=== PATIENT | male | born 1995 | race Two or more races ===

== ENCOUNTER 2021-09-14 07:05 | Emergency (ER) | payer MEDICAID, SELFPAY ==
[2021-09-14 07:09] VITALS: BP 133/67; PULSE 72; RESP 18; TEMP 36.6; O2SAT 97; BMI 28.8
[2021-09-14 07:36] LABS: Strep A Nucleic Acid Negative (Negative)
--- NOTE | 2021-09-14 07:38 | ED_ITS ---
HPI - General Adult General Chief complaint: General Medical Stated complaint: fever, cough, runny nose, chest feels tight Time Seen by Provider: 09/14/21 07:38 Source: patient Mode of arrival: ambulatory Limitations: no limitations History of Present Illness HPI narrative: patient with fever, chills, cough started yesterday. Today he developed shortness of breath. Patient is not vaccinated for COVID or the flu. Onset (ago): day(s) Severity: mild Associated symptoms: cough, fever/chills, headaches and nausea/vomiting Related Data Previous Rx's Medication Instructions Recorded [id number] 2.5 20 ml PO Q4H PRN #118 ml 09/14/21 mg-5 mg-50 mg/5 mL oral liquid (Robitussin Cough and Cold CF) Allergies Allergy/AdvReac Type Severity Reaction Status Date / Time No Known Allergies Allergy Unverified 07/07/20 16:22 Review of Systems Constitutional: Constitutional: Reports no additional constitutional complaints Eyes: Eyes: Reports no additional eye complaints ENT: Denies dizziness Cardiovascular: Cardiovascular: Reports no additional cardiovascular complaints Respiratory: Respiratory: Reports as per HPI Gastrointestinal: Gastrointestinal: Reports no additional gastrointestinal complaints Musculoskeletal: Musculoskeletal: Reports no additional musculoskeletal complaints Integumentary/Breasts: Skin/Breast: Denies rash Neurologic: Reports system reviewed and no additional complaints, except as documented, Denies dizziness and Denies Sensory deficit (Neuro) Psychiatric: Psychiatric: Denies anxiety [facility] Past Medical History Medical History No known health problems Social History Social History Advance Directives: No Physical Exam Vital Signs: Vital Signs: Last Vital Signs Temp 98.4 F 09/14/21 08:43 Pulse 75 09/14/21 08:43 Resp 16 09/14/21 08:43 BP 122/88 09/14/21 08:43 Pulse Ox 97 09/14/21 08:43 Body Mass Index 28.8 Const: General: healthy appearing Nutritional Appearance: average body habitus Orientation/consciousness: oriented to person and patient oriented x3 Limitations: no limitations HENMT: Head: Yes normal to inspection Ears: external ears normal General nose exam: Normal external nose present Mouth: Normal oral and palatal mucosa present and oropharynx normal Throat: Yes posterior oropharynx normal Eyes: General: appearance normal, both eyes and all related structures Neck: Other: supple Neck: Yes normal visual inspection Chest: Chest palpation & inspection: normal inspection of the chest Resp: Auscultation: clear to auscultation bilaterally Cardio: Jugular venous distension: no JVD Rate: regular rate Rhythm: regular rhythm Heart sounds: S1 normal heart sound present and S2 normal heart sound present GI: Inspection: Yes normal to inspection Palpation (GI): Soft to palpation, nontender and No hepatosplenomegaly present Auscultation: normal bowel sounds : General: Yes no CVA tenderness Back/Spine/Pelvis: Back: no CVA tenderness Skin: General skin exam: no rashes or lesions noted Neuro: General: oriented to person and patient oriented x3 Cranial nerves: Yes CN's II-XII intact bilaterally Motor exam (neuro): 5/5 motor strength present throughout Sensory Exam: No Sensory deficit (Neuro) Extrem: General: Yes normal to inspection Psych: Appearance: grossly normal Course Reevaluation(s) Reevaluation #1: COVID, RSV, and flu negative. Will dc home Time: 09:04 Medical Decision Making Lab Data Labs: Lab Results 09/14/21 09/14/21 Range/Units 07:16 07:21 Influenza Type A (PCR) NEGATIVE (Negative) Influenza Type B (PCR) NEGATIVE (Negative) RSV RNA Qual (PCR) NEGATIVE (Negative) SARS-CoV-2 RNA (RT-PCR) NEGATIVE (Negative) S. pyogenes GrpA ABBIE Negative (Negative) Discharge Plan Discharge Clinical Impression: Upper respiratory infection Qualifiers: URI type: unspecified URI Qualified Code(s): J06.9 - Acute upper respiratory infection, unspecified Patient Disposition: Home, Self-Care Instructions: Upper Respiratory Infection (ED), Viral Syndrome (ED) Prescriptions: New Robitussin Cough and Cold CF 2.5-5-50 mg/5 mL liquid 20 ml PO Q4H PRN (Reason: cold symptoms) Qty: 118 RF: 0 Referrals: Conner Tran MD [Primary Care Provider] - 1 week Stand Alone Forms: Work/School Release
[2021-09-14 08:25] LABS: Influenza A PCR NEGATIVE (Negative); Influenza B PCR NEGATIVE (Negative); Resp Syncy Virus RNA Qual PCR NEGATIVE (Negative); SARS COV2 PCR INHOUSE NEGATIVE (Negative)
[2021-09-14 08:43] VITALS: BP 122/88; PULSE 75; RESP 16; TEMP 36.9; O2SAT 97
== END 2021-09-14 10:29 | disposition home or self-care (01) ==
PROVIDERS: Emergency Provider Emergency Medicine; PCP Internal Medicine
DX: J06.9 Acute upper respiratory infection, unspecified (principal); R50.9 Fever, unspecified; R09.89 Other specified symptoms and signs involving the circulatory and respiratory systems; Z79.899 Other long term (current) drug therapy; Z20.822 Contact with and (suspected) exposure to COVID-19
CPT/HCPCS: 0241U; 36415; 87651; 99283

== ENCOUNTER 2021-09-17 09:12 | Emergency (ER) | payer MEDICAID, SELFPAY ==
--- NOTE | ~2021-09-17 | CT_ITS ---
EXAMINATION: CT ABDOMEN AND PELVIS WITHOUT CONTRAST CLINICAL INFORMATION: Right-sided abdominal pain COMPARISON: None TECHNIQUE: Multidetector volumetric imaging was performed from the superior aspect of the liver through the pubic symphysis. Sagittal and coronal reformatted images were obtained on the technologist's workstation. This CT examination was performed using dose optimization techniques as appropriate, variously including the following: *Automated exposure control *Adjustment of mA and/or kV according to patient size (this includes techniques or standardized protocols for targeted exams where dose is matched to indication/reason for exam; i.e. extremities or head) *Use of iterative reconstruction technique DLP: 557 mGy-cm FINDINGS: LUNG BASES: The visualized lung bases are unremarkable. LIVER, GALLBLADDER, AND BILIARY TREE: The liver is normal in size, shape, and attenuation. No focal hepatic lesion or biliary ductal dilatation is present. The gallbladder is unremarkable with no evidence of radiopaque gallstones, gallbladder wall thickening, or obvious pericholecystic inflammatory changes. PANCREAS: Unremarkable. SPLEEN: Unremarkable. ADRENAL GLANDS: Unremarkable. KIDNEYS AND URETERS: The kidneys are normal in size, shape, and attenuation. No hydronephrosis, hydroureter, or calculi seen. No perinephric stranding. There is a 2 cm left renal peripelvic hypodensity in midpole. Question small cyst. BLADDER: Unremarkable. GASTROINTESTINAL TRACT: There is scattered stool and gas seen throughout the colon without distention. The small bowel loops are normal caliber. Appendix is normal caliber. No inflammatory changes seen in the abdomen or the pelvis. ABDOMINAL WALL: No significant hernia is appreciated. LYMPH NODES: Normal. VASCULAR: Unremarkable. PELVIC VISCERA: Unremarkable. OSSEOUS STRUCTURES: Unremarkable. CT/CT abdomen pelvis wo con IMPRESSION: No acute intra-abdominal process seen. Normal appendix. Probable left peripelvic cyst. Fleischner guidelines were followed.
[2021-09-17 09:19] VITALS: BP 129/93; PULSE 80; RESP 18; TEMP 36.9; O2SAT 97; BMI 28.8
[2021-09-17 09:21] VITALS: BP 129/93; PULSE 80; RESP 18; TEMP 36.9; O2SAT 98; BMI 29.7
--- NOTE | 2021-09-17 10:19 | ED.ABDPAIN ---
HPI - Abdominal Pain General Chief Complaint: Abdominal Pain Stated Complaint: sore abd abd cramping Time Seen by Provider: 09/17/21 10:16 Source: patient and family (Mother) Mode of arrival: ambulatory Limitations: no limitations History of Present Illness HPI narrative: 26-year-old male came in for evaluation of right-sided abdominal cramps. Symptoms started 2 days ago after eating at a restaurant, shortly after ate salad at the restaurant start have cramps in his right abdominal area, cramps are intermittent but very frequent, described as cramps or colic, severe /, associated with nausea and 1 time vomiting, patient also started nonbloody watery diarrhea x 1 yesterday. No fever, no chills. Food will aggravate the pain, nothing relieves the pain. No history of abdominal surgery. Declined any urinary symptoms no blood in the urine, no urinary frequency. Related Data Previous Rx's Medication Instructions Recorded [id number] 2.5 20 ml PO Q4H PRN #118 ml 09/14/21 mg-5 mg-50 mg/5 mL oral liquid (Robitussin Cough and Cold CF) Allergies Allergy/AdvReac Type Severity Reaction Status Date / Time No Known Allergies Allergy Unverified 07/07/20 16:22 Review of Systems Review of Systems All other systems are reviewed and are negative Constitutional: Reports as per HPI and Reports no additional constitutional complaints Eyes: Reports as per HPI and Reports no additional eye complaints Reports system reviewed and no additional complaints, except as documented Cardiovascular: Reports as per HPI and Reports no additional cardiovascular complaints Respiratory: Reports as per HPI and Reports no additional respiratory complaints Gastrointestinal: Reports as per HPI and Reports no additional gastrointestinal complaints Genitourinary: Reports no additional female genitourinary complaints Musculoskeletal: Reports no additional musculoskeletal complaints Skin/Breast: Reports system reviewed and no additional complaints, except as docu Psychiatric: Reports no additional psychiatric complaints Endocrine: Reports no additional endocrine complaints Hematologic/Lymphatic: Reports no additional hematologic/lymphatic complaints Allergic/Immunologic: Reports no additional allergic/immunologic complaints Reports system reviewed and no additional complaints, except as documented and Reports Abnormal speech present Physical Exam Vital Signs: Vital Signs: Last Vital Signs Temp 98.4 F 09/17/21 09:21 Pulse 80 09/17/21 09:21 Resp 18 09/17/21 09:21 BP 129/93 H 09/17/21 09:21 Pulse Ox 98 09/17/21 09:21 Body Mass Index 29.7 Insert trauma vital signs Appearance: Alert. Oriented X3. No acute distress. Head: Normal external exam. Normocephalic. Atraumatic. No Mayers signs noted. No raccoon eyes noted Eyes: PERRLA. EOMI. Conjunctiva and sclera normal. Eyelids normal. ENT: TM's Normal. Pharynx normal. Uvula midline. Moist mucous membranes. No trismus noted. No drooling noted. No muffled voice noted. Neck: Normal inspection. Neck supple. FROM. No adenopathy. Thyroid Normal. No meningeal signs. No neck mass noted. CVS: Normal heart rate and rhythm. Heart sound normal. No murmurs noted. Pulses normal throughout. Respiratory: No respiratory distress. Painless inspiration. Breath sounds normal. No wheezes/rales/rhonchi noted. Chest nontender. No accessory muscle usage noted or decreased air movement noted. Abdomen: Soft and nontender. Bowel sounds normal in all 4 quadrants. No distention noted. No organomegaly noted. No visible injury noted. Back: No CVA tenderness. Full range of motion noted. Skin: Skin warm and dry. Normal skin color. Normal skin turgor. No rashes/lesions/lacerations noted. Extremities: No lower extremity edema. Extremities exhibit normal range of motion. Extremities nontender. Neuro: Oriented X 3. Cranial nerve exam: II-XII are grossly intact No motor deficit. No sensory deficit. Reflexes normal. Course Course Course Narrative: Assessment and plan. 26-year-old male came in with right-sided abdominal colic pain for 2 days since he ate bad food at a restaurant. Patient has unremarkable labs, CT with no concern of intra-abdominal pathology. Patient was reassured and instructed to use Tylenol for discomfort. MDM - Abdominal Pain Lab Data Attestation: I reviewed the patient's lab results. Result diagrams: 09/17/21 10:52 09/17/21 10:52 Labs: Lab Results 09/17/21 09/17/21 09/17/21 Range/Units 10:52 10:52 10:57 WBC 8.2 (4.8-10.8) X10*3/uL RBC 5.11 (4.60-5.80) X10*6/uL Hgb 15.3 (14.0-18.0) g/dl Hct 45.2 (42.0-52.0) % MCV 88.5 (80.0-98.0) fL MCH 29.9 (27.0-33.0) pg MCHC 33.8 (31.0-36.0) g/dl RDW 12.6 (11.0-16.0) % Plt Count 261 (160-400) X10*3/uL MPV 9.3 L (9.4-12.4) fL Immature Gran % (Auto) 0.4 (0.0-0.4) % Neut % (Auto) 55.0 (45-73) % Lymph % (Auto) 28.2 (20-40) % Hand % (Auto) 9.7 (2-11) % Eos % (Auto) 6.6 H (0-4) % Baso % (Auto) 0.1 (0-2) % Lymph # (Auto) 2.3 (1.2-4.9) X10*3/uL Hand # (Auto) 0.8 (0.1-1.2) X10*3/uL Eos # (Auto) 0.5 H (0.0-0.4) X10*3/uL Baso # (Auto) 0.0 (0.0-0.2) X10*3/uL Abs Immat Gran (auto) 0.03 (0.00-0.03) X10*3/uL Absolute Neuts (auto) 4.5 (2.0-8.3) x10*3/uL Absolute Nucleated RBC 0.000 (0.0-0.012) X10*3/uL Nucleated RBC % (auto) 0.0 (0.0-0.2) /100WBC Sodium 141 (135-145) mmol/L Potassium 4.2 (3.3-5.1) mmol/L Chloride 105 (96-108) mmol/L Carbon Dioxide 25 (22-29) mmol/L Anion Gap 15 (12-20) BUN 12 (9-16) mg/dL Creatinine 0.85 (0.5-1.4) mg/dL Estim Creat Clear Calc 142.6 Estimated GFR > 60 Random Glucose 101 (60-115) mg/dL Calcium 9.8 (8.4-10.2) mg/dL Total Bilirubin 0.7 (0.0-1.0) mg/dL Direct Bilirubin 0.2 (0.0-0.5) mg/dL AST 21 (5-37) U/L ALT 18 (0-40) U/L Alkaline Phosphatase 81 (39-117) U/L Total Protein 7.4 (6.5-8.0) g/dL Albumin 4.8 (3.5-5.0) g/dL Lipase 22 (8-78) U/L Urine Color YELLOW Urine Appearance CLEAR Urine pH 6.0 (5.0-8.0) Ur Specific [place] >= 1.030 H (1.005-1.025) Urine Protein 1+ H (NEG-TRACE) MG/DL Urine Glucose (UA) NEG (NEG) MG/DL Urine Ketones NEG (NEG) MG/DL Urine Blood NEG (NEG) Urine Nitrite NEG (NEG) Ur Leukocyte Esterase NEG (NEG) Urine RBC 0 (0) /HPF Urine WBC 0 (0-4) /HPF Ur Squamous Epith Cells NONE /LPF Urine Bacteria NONE /LPF Urine Mucus 1+ /LPF Imaging Data CT scan - abdomen: Radiologist's impression: No acute intra-abdominal process seen. ?Normal appendix. ?Probable left peripelvic cyst.? ?Fleischner guidelines were followed. Discharge Plan Discharge Clinical Impression: Abdominal pain, Food poisoning Patient Disposition: Home, Self-Care Instructions: Food Poisoning (ED) Prescriptions: No Action Robitussin Cough and Cold CF 2.5-5-50 mg/5 mL liquid 20 ml PO Q4H PRN (Reason: cold symptoms) Qty: 118 RF: 0 Referrals: Conner Tran MD [Primary Care Provider] - 2 days [facility] Past Medical History Medical History No known health problems Social History Social History Alcohol intake: never Patient Tobacco Use Status: Former Tobacco user Smoked in Last 30 Days: No Use of substances other than those prescribed or required for medical reasons: Yes Substance Use Type: Marijuana Substance Use Frequency: Occasionally Advance Directives: No Advance Directives Information Provided: Yes
[2021-09-17 11:01] LABS: MANUAL DIFF FLAG NO
[2021-09-17 11:02] LABS: Basophils Percent Auto 0.1 % (0-2); Eosinophils Absolute Auto 0.5 X10*3/uL (0.0-0.4); Eosinophils Percent Auto 6.6 % (0-4); Hematocrit 45.2 % (42.0-52.0); Hemoglobin 15.3 g/dl (14.0-18.0); Imm Gran Abs Auto 0.03 X10*3/uL (0.00-0.03); Imm Gran Pct Auto 0.4 % (0.0-0.4); Lymphocytes Absolute Auto 2.3 X10*3/uL (1.2-4.9); Lymphocytes Percent Auto 28.2 % (20-40); Mean Corpuscular HGB Conc 33.8 g/dl (31.0-36.0); Mean Corpuscular Hemoglobin 29.9 pg (27.0-33.0); Mean Corpuscular Volume 88.5 fL (80.0-98.0); Mean Platelet Volume 9.3 fL (9.4-12.4); Monocytes Absolute Auto 0.8 X10*3/uL (0.1-1.2); Monocytes Percent Auto 9.7 % (2-11); Neutrophils Absolute Auto 4.5 x10*3/uL (2.0-8.3); Platelet Count 261 X10*3/uL (160-400); Red Blood Count 5.11 X10*6/uL (4.60-5.80); Red Cell Distribution Width 12.6 % (11.0-16.0); White Blood Count 8.2 X10*3/uL (4.8-10.8)
[2021-09-17 11:05] LABS: Appearance Urine CLEAR; Color Urine YELLOW; Glucose Urine UA NEG (NEG); Leukocyte Esterase Urine NEG (NEG); Nitrite Urine NEG (NEG); Specific Gravity - Urine >= 1.030 (1.005-1.025); UACC Culture Trigger NO; Urine Blood NEG (NEG); Urine Ketones NEG (NEG); Urine Protein 1+ MG/DL (NEG-TRACE)
[2021-09-17 11:16] LABS: Alanine Aminotransferase 18 U/L (0-40); Albumin Level 4.8 g/dL (3.5-5.0); Alkaline Phosphatase 81 U/L (39-117); Anion Gap 15 (12-20); Aspartate Amino Transferase 21 U/L (5-37); Bilirubin Direct 0.2 mg/dL (0.0-0.5); Bilirubin Total 0.7 mg/dL (0.0-1.0); Blood Urea Nitrogen 12 mg/dL (9-16); Calcium 9.8 mg/dL (8.4-10.2); Carbon Dioxide 25 mmol/L (22-29); Chloride 105 mmol/L (96-108); Creatinine Clr Calc Pharmacy 142.6; Estimated Glomerular Filt Rate > 60; Glucose Random 101 mg/dL (60-115); Lipase 22 U/L (8-78); Potassium 4.2 mmol/L (3.3-5.1); Sodium 141 mmol/L (135-145); Total Protein 7.4 g/dL (6.5-8.0)
[2021-09-17 11:20] LABS: Mucus Urine 1+ /LPF; RBC Urine 0 /HPF (0); WBC Urine 0 /HPF (0-4)
== END 2021-09-17 11:36 | disposition home or self-care (01) ==
PROVIDERS: Emergency Provider Emergency Medicine; PCP Internal Medicine
DX: A05.9 Bacterial foodborne intoxication, unspecified (principal); R10.9 Unspecified abdominal pain
CPT/HCPCS: 36415; 74176; 80048; 80076; 81001; 83690; 85025; 96360; 99284

== ENCOUNTER 2021-10-17 12:03 | Outpatient (REF) | payer MEDICAID, SELFPAY | END 2021-10-17 12:04 | disposition home or self-care (01) | LOC: HO.HMGCLDS 12:03 | PROVIDERS: PCP Internal Medicine; Visit Provider Internal Medicine | DX: Z20.822 Contact with and (suspected) exposure to COVID-19 (principal) | CPT/HCPCS: C9803; U0003; U0005 ==

== ENCOUNTER 2022-01-22 09:46 | Emergency (ER) | payer MEDICAID, SELFPAY ==
--- NOTE | ~2022-01-22 | CT_ITS ---
EXAMINATION: CT HEAD WITHOUT CONTRAST CLINICAL INFORMATION: Head trauma and confusion. COMPARISON: No relevant prior imaging. TECHNIQUE: Contiguous axial imaging was performed from the skull base to vertex without intravenous administration of contrast. This CT examination was performed using dose optimization techniques as appropriate, variously including the following: *Automated exposure control *Adjustment of mA and/or kV according to patient size (this includes techniques or standardized protocols for targeted exams where dose is matched to indication/reason for exam; i.e. extremities or head) *Use of iterative reconstruction technique DLP: 663 mGy-cm FINDINGS: There is no acute intracranial hemorrhage or abnormal extra-axial collection. No intracranial mass effect or midline shift. Lateral and third ventricles are normal. No hydrocephalus. Pierson-white matter differentiation is preserved and there is no evidence of acute territorial infarct. The calvarium and skull base are intact. Mastoid air cells and middle ear cavities are well aerated. No active paranasal sinus disease. CT/CT head/brain wo con IMPRESSION: Normal CT scan of the head.
[2022-01-22 09:55] VITALS: BP 127/79; PULSE 90; RESP 20; TEMP 36.2; O2SAT 97; BMI 28.3
--- NOTE | 2022-01-22 10:29 | ED.GENADULT ---
HPI - General Adult General Chief complaint: General Medical Stated complaint: Fall/head inj Time Seen by Provider: 01/22/22 10:29 Source: patient Mode of arrival: ambulatory Limitations: no limitations History of Present Illness HPI narrative: Fell out of bed on Saturday, patient states that he has had LOC at the time, he is complaining of being drowsy and confused. Denies medical problems or blood thinners. Onset (ago): day(s) Location: head Associated symptoms: confusion, headaches and other (drowsy) Related Data Previous Rx's Medication Instructions Recorded [id number]-[id number] 2.5 20 ml PO Q4H PRN #118 ml 09/14/ mg-5 mg-50 mg/5 mL oral liquid (Robitussin Cough and Cold CF) Allergies Allergy/AdvReac Type Severity Reaction Status Date / Time No Known Allergies Allergy Unverified 07/07/20 16:22 Review of Systems Constitutional: Constitutional: Reports no additional constitutional complaints Eyes: Eyes: Reports no additional eye complaints ENT: Denies dizziness Cardiovascular: Cardiovascular: Reports no additional cardiovascular complaints Respiratory: Respiratory: Reports as per HPI Gastrointestinal: Gastrointestinal: Reports no additional gastrointestinal complaints Musculoskeletal: Musculoskeletal: Reports no additional musculoskeletal complaints Integumentary/Breasts: Skin/Breast: Denies rash Neurologic: Reports system reviewed and no additional complaints, except as documented, Denies dizziness and Denies Sensory deficit (Neuro) Psychiatric: Psychiatric: Denies anxiety PMFSH Past Medical History Medical History No known health problems Social History Social History Alcohol intake: never Patient Tobacco Use Status: Former Tobacco user Substance Use Type: Marijuana Advance Directives: No Advance Directives Information Provided: No Physical Exam ED Vital Signs: Vital Signs - 24 hr 01/22/22 09:55 Temperature 97.2 F Pulse Rate 90 Respiratory Rate 20 Blood Pressure 127/79 Pulse Oximetry 97 BMI result Body Mass Index 28.3 Const General: healthy appearing Nutritional Appearance: average body habitus Orientation/consciousness: oriented to person and patient oriented x3 Limitations: no limitations HENMT Head: Yes normal to inspection Ears: external ears normal General nose exam: Normal external nose present Mouth: Normal oral and palatal mucosa present and oropharynx normal Throat: Yes posterior oropharynx normal Eyes General: appearance normal, both eyes and all related structures Neck Neck: Yes normal visual inspection Chest Chest palpation & inspection: normal inspection of the chest Resp Auscultation: clear to auscultation bilaterally Cardio Jugular venous distension: no JVD Rate: regular rate Rhythm: regular rhythm Heart sounds: S1 normal heart sound present and S2 normal heart sound present GI Inspection: Yes normal to inspection Palpation (GI): Soft to palpation, nontender and No hepatosplenomegaly present Auscultation: normal bowel sounds General: Yes no CVA tenderness Back/Spine/Pelvis Back: no CVA tenderness Skin Other: ecchympsis and abrasion to forehead Neuro General: oriented to person and patient oriented x3 Cranial nerves: Yes CN's II-XII intact bilaterally Motor exam (neuro): 5/5 motor strength present throughout Sensory Exam: No Sensory deficit (Neuro) Extrem General: Yes normal to inspection Psych Appearance: grossly normal Course Reevaluation(s) Reevaluation #1: patient describing concussion symptoms. No active bleeding in brain, will dc home Time: 11:24 Medical Decision Making Imaging Data CT scan - head: Radiologist's impression: FINDINGS: There is no acute intracranial hemorrhage or abnormal extra-axial collection. No intracranial mass effect or midline shift. Lateral and third ventricles are normal. No hydrocephalus. Pierson-white matter differentiation is preserved and there is no evidence of acute territorial infarct. The calvarium and skull base are intact. Mastoid air cells and middle ear cavities are well aerated. No active paranasal sinus disease. CT/CT head/brain wo con IMPRESSION: Normal CT scan of the head. Discharge Plan Discharge Clinical Impression: Concussion with loss of consciousness Patient Disposition: Home, Self-Care Instructions: Concussion (ED) Prescriptions: No Action Robitussin Cough and Cold CF 2.5-5-50 mg/5 mL liquid 20 ml PO Q4H PRN (Reason: cold symptoms) Qty: 118 0RF Referrals: Conner Tran MD [Primary Care Provider] - 5 days
--- NOTE | 2022-01-22 11:23 | PC.NURSE ---
alert, speech clear, had a dumont yesterday, foggy today , nad, teaching done re home care treatment and follow up
== END 2022-01-22 12:07 | disposition home or self-care (01) ==
PROVIDERS: Emergency Provider Emergency Medicine; PCP Internal Medicine
DX: S06.0X1A Concussion with loss of consciousness of 30 minutes or less, initial encounter (principal); W06.XXXA Fall from bed, initial encounter; Y93.84 Activity, sleeping; Y92.013 Bedroom of single-family (private) house as the place of occurrence of the external cause; Y99.9 Unspecified external cause status
CPT/HCPCS: 70450; 99283; 99284

== ENCOUNTER 2023-03-09 10:30 | Emergency (ER) | payer MEDICAID, SELFPAY ==
--- NOTE | ~2023-03-09 | US_ITS ---
EXAMINATION: US ABDOMEN LIMITED CLINICAL INFORMATION: Right upper quadrant pain. COMPARISON: CT scan of the abdomen and pelvis dated 09/09/2021. TECHNIQUE: Real-time imaging of the right upper quadrant abdominal viscera. FINDINGS: PANCREAS: Visualized portions unremarkable. LIVER: Unremarkable. The main portal vein is patent. GALLBLADDER: Unremarkable. COMMON BILE DUCT: Normal in caliber measuring 0.4 cm in diameter. RIGHT KIDNEY: 10.0 cm. Unremarkable. FREE FLUID: None. US/US abdomen limited IMPRESSION: Unremarkable right upper quadrant abdominal ultrasound.
[2023-03-09 11:04] VITALS: BP 122/83; PULSE 73; RESP 16; TEMP 36.3; O2SAT 98; BMI 24.7
[2023-03-09 11:30] LABS: MANUAL DIFF FLAG NO
[2023-03-09 11:31] LABS: Basophils Percent Auto 0.4 % (0-2); Eosinophils Absolute Auto 0.3 X10*3/uL (0.0-0.4); Eosinophils Percent Auto 3.2 % (0-4); Hematocrit 46.2 % (42.0-52.0); Imm Gran Abs Auto 0.02 X10*3/uL (0.00-0.03); Imm Gran Pct Auto 0.3 % (0.0-0.4); Lymphocytes Absolute Auto 3.2 X10*3/uL (1.2-4.9); Lymphocytes Percent Auto 41.3 % (20-40); Mean Corpuscular HGB Conc 34.6 g/dl (31.0-36.0); Mean Corpuscular Hemoglobin 30.4 pg (27.0-33.0); Mean Corpuscular Volume 87.8 fL (80.0-98.0); Mean Platelet Volume 9.1 fL (9.4-12.4); Monocytes Absolute Auto 0.8 X10*3/uL (0.1-1.2); Monocytes Percent Auto 9.6 % (2-11); Neutrophils Absolute Auto 3.6 x10*3/uL (2.0-8.3); Neutrophils Percent Auto 45.2 % (45-73); Platelet Count 287 X10*3/uL (160-400); Red Blood Count 5.26 X10*6/uL (4.60-5.80); Red Cell Distribution Width 12.7 % (11.0-16.0); White Blood Count 7.8 X10*3/uL (4.8-10.8)
[2023-03-09 11:32] LABS: Appearance Urine Clear; Color Urine Dark Yellow; Glucose Urine UA Negative (Negative); Leukocyte Esterase Urine Negative (Negative); Nitrite Urine Negative (Negative); Specific Gravity - Urine >= 1.030 (1.005-1.025); UMIC TRIGGER UACC YES; Urine Blood Negative (Negative); Urine Ketones Trace mg/dL (Negative); Urine Protein 30 (1+) mg/dL (Neg-Trace)
[2023-03-09 11:35] LABS: Bacteria Urine None Seen (None Seen); Hyaline Casts Urine 0-2 /LPF (0-2); RBC Urine 0-2 /HPF (0-2); Squamous Epithelial Cell Urine 0-2 /HPF (0-2); WBC Urine 0-5 /HPF (0-5)
[2023-03-09 11:47] LABS: Alanine Aminotransferase 15 U/L (0-40); Albumin Level 4.8 g/dL (3.5-5.0); Alkaline Phosphatase 66 U/L (39-117); Anion Gap 13 (12-20); Aspartate Amino Transferase 18 U/L (5-37); Bilirubin Total 0.5 mg/dL (0.0-1.0); Blood Urea Nitrogen 18 mg/dL (9-16); Calcium 9.8 mg/dL (8.4-10.2); Carbon Dioxide 27 mmol/L (22-29); Chloride 106 mmol/L (96-108); Estimated Glomerular Filt Rate > 60; Potassium 3.7 mmol/L (3.3-5.1); Sodium 142 mmol/L (135-145); Total Protein 7.3 g/dL (6.5-8.0)
[2023-03-09 11:48] LABS: Glucose Random 107 mg/dL (60-115)
--- NOTE | 2023-03-09 12:09 | ED_ITS ---
HPI - General Adult General Chief complaint: Abdominal Pain Stated complaint: R side stomach pain, hard bump on side Time Seen by Provider: 03/09/23 12:08 Source: patient Mode of arrival: ambulatory Limitations: no limitations History of Present Illness HPI narrative: Patient is a 27-year-old male with no reported history presenting with intermittent right upper quadrant pain for the past year. He reports that the pain begins after eating but states that at times the pain began immediately after eating and at other times the pain began several hours after eating. He reports using Pepto Bismol once with temporary relief of pain. He denies any associated nausea, vomiting, diarrhea, or constipation. He denies any fevers. He denies any melena or BRBPR. He denies any cough, shortness of breath, chest pain. MD complaint: RUQ abdominal pain Onset (ago): year(s) Location: abdomen Radiation: non-radiation Severity: moderate Quality: burning Pain Consistency: intermittent Relieving factors: none Exacerbating factors: eating Associated symptoms: denies other symptoms Treatments prior to arrival: other (pepto once with temporary relief) Related Data Previous Rx's Medication Instructions Recorded qhfjstgbzdibf-SX-wvkvhchafio 2.5 20 ml PO Q4H PRN cold symptoms 09/14/21 mg-5 mg-50 mg/5 mL oral liquid #118 mL (Robitussin Cough and Cold CF) Allergies Allergy/AdvReac Type Severity Reaction Status Date / Time No Known Allergies Allergy Verified 03/09/23 11:04 Review of Systems Review of Systems: As per HPI Yes all other systems are reviewed and are negative Constitutional: Constitutional: Reports as per HPI [facility] Past Medical History Medical History No known health problems Social History Social History Alcohol intake: current Alcohol intake frequency: a few times a month Patient Tobacco Use Status: Former Tobacco user Smoked in Last 30 Days: No Substance Use Type: Marijuana Advance Directives: No Advance Directives Information Provided: No Physical Exam ED Vital Signs: Vital Signs - 24 hr 03/09/23 11:04 03/09/23 12:20 03/09/23 15:00 Temperature 97.3 F 97.9 F 98.1 F Pulse Rate 73 63 80 Respiratory Rate 16 20 18 Blood Pressure 122/83 124/82 105/66 Pulse Oximetry 98 97 100 Oxygen Delivery Method Room Air Room Air Room Air BMI result Body Mass Index 24.7 Const General: cooperative, healthy appearing and no acute distress Orientation/consciousness: oriented to person, oriented to place, oriented to time and patient oriented x3 Limitations: no limitations HENMT Head: Yes normocephalic and Yes atraumatic Ears: external ears normal General nose exam: Normal external nose present Face and sinus: Yes face symmetric Mouth: oropharynx normal and moist mucous membranes Throat: Yes uvula midline Eyes Pupils: Equal, round and reactive pupils present Neck Neck: Yes normal visual inspection and Yes supple Resp Effort & Inspection: normal respiratory effort and able to speak in complete sentences Auscultation: clear to auscultation bilaterally Cardio Rate: regular rate Rhythm: regular rhythm Heart sounds: S1 normal heart sound present and S2 normal heart sound present GI Inspection: Yes normal to inspection Palpation (GI): Soft to palpation, Tenderness to palpation present (GI) in the RUQ (mildly TTP); Richard's sign negative, no guarding, not rigid, no hernias, no masses and No Rebound tenderness present Auscultation: normoactive bowel sounds General: Yes no CVA tenderness Back/Spine/Pelvis Back: no CVA tenderness Skin General skin exam: elasticity normal and turgor normal Neuro General: oriented to person, oriented to place, oriented to time, patient oriented x3, moves all extremities, no focal motor deficits and CN's II-XI intact bilaterally Cranial nerves: Yes Equal, round and reactive pupils present Cognition (Neuro): normal cognition Extrem General: Yes full ROM, Yes no pedal edema and Yes no calf tenderness Psych Mental Status: mental status grossly normal Affect: normal affect Thought process: Normal thought process present Course Course Course Narrative: 15:33 FINDINGS: PANCREAS: Visualized portions unremarkable. LIVER: Unremarkable. The main portal vein is patent. GALLBLADDER: Unremarkable. COMMON BILE DUCT: Normal in caliber measuring 0.4 cm in diameter. RIGHT KIDNEY: 10.0 cm. Unremarkable. FREE FLUID: None. US/US abdomen limited IMPRESSION: Unremarkable right upper quadrant abdominal ultrasound. ? U/S reveals no evidence of cholelithiasis or cholecystitis. Labs and urine unremarkable. Will refer patient to GI for further evaluation. Feel patient is stable for discharge home at this time. All questions answered and patient agreeable to plan of care. Medical Decision Making Medical Decision Making MDM Narrative: Patient is a 27-year-old male with no reported history presenting with intermittent right upper quadrant pain for the past year. On exam patient is nontoxic appearing, in no acute distress, awake, A+Ox3, VS WNL, abdomen soft, mildly TTP RUQ, no guarding or rebound tenderness, no CVA tenderness. No abdominal mass appreciated, when patient asked to localize the area he feels he has a lump, he points to the anterior tip of his 12th rib on the right. Given ongoing intermittent nature of symptoms and reassuring physical exam feel symptoms are likely related to cholelithiasis versus cholecystitis, possibly GERD or PUD. Unlikely ACS, pancreatitis, pneumonia, PE, bowel obstruction. Plan: labs, UA, RUQ U/S Please refer to course for remaining clinical decision making. Lab Data 03/09/23 11:25 03/09/23 11:25 Labs: Lab Results 03/09/23 03/09/23 03/09/23 Range/Units 11:25 11:25 11:25 WBC 7.8 (4.8-10.8) X10*3/uL RBC 5.26 (4.60-5.80) X10*6/uL Hgb 16.0 (14.0-18.0) g/dl Hct 46.2 (42.0-52.0) % MCV 87.8 (80.0-98.0) fL MCH 30.4 (27.0-33.0) pg MCHC 34.6 (31.0-36.0) g/dl RDW 12.7 (11.0-16.0) % Plt Count 287 (160-400) X10*3/uL MPV 9.1 L (9.4-12.4) fL Immature Gran % (Auto) 0.3 (0.0-0.4) % Neut % (Auto) 45.2 (45-73) % Lymph % (Auto) 41.3 H (20-40) % [place] % (Auto) 9.6 (2-11) % Eos % (Auto) 3.2 (0-4) % Baso % (Auto) 0.4 (0-2) % Lymph # (Auto) 3.2 (1.2-4.9) X10*3/uL [place] # (Auto) 0.8 (0.1-1.2) X10*3/uL Eos # (Auto) 0.3 (0.0-0.4) X10*3/uL Baso # (Auto) 0.0 (0.0-0.2) X10*3/uL Abs Immat Gran (auto) 0.02 (0.00-0.03) X10*3/uL Absolute Neuts (auto) 3.6 (2.0-8.3) x10*3/uL Absolute Nucleated RBC 0.000 (0.0-0.012) X10*3/uL Nucleated RBC % (auto) 0.0 (0.0-0.2) /100WBC Sodium 142 (135-145) mmol/L Potassium 3.7 (3.3-5.1) mmol/L Chloride 106 (96-108) mmol/L Carbon Dioxide 27 (22-29) mmol/L Anion Gap 13 (12-20) BUN 18 H (9-16) mg/dL Creatinine 0.85 (0.5-1.4) mg/dL Estim Creat Clear Calc 122.0 Estimated GFR > 60 Random Glucose 107 (60-115) mg/dL Calcium 9.8 (8.4-10.2) mg/dL Total Bilirubin 0.5 (0.0-1.0) mg/dL AST 18 (5-37) U/L ALT 15 (0-40) U/L Alkaline Phosphatase 66 (39-117) U/L Total Protein 7.3 (6.5-8.0) g/dL Albumin 4.8 (3.5-5.0) g/dL Urine Color Dark Yellow Urine Appearance Clear Urine pH 6.0 (5.0-9.0) Ur Specific [place] >= 1.030 H (1.005-1.025) Urine Protein 30 (1+) H (Neg-Trace) mg/dL Urine Glucose (UA) Negative (Negative) mg/dL Urine Ketones Trace (Negative) mg/dL Urine Blood Negative (Negative) Urine Nitrite Negative (Negative) Ur Leukocyte Esterase Negative (Negative) Urine RBC 0-2 (0-2) /HPF Urine WBC 0-5 (0-5) /HPF Ur Squamous Epith Cells 0-2 (0-2) /HPF Urine Bacteria None Seen (None Seen) Hyaline Casts 0-2 (0-2) /LPF Discharge Plan Discharge Clinical Impression: Abdominal pain Patient Disposition: Home, Self-Care Instructions: Abdominal Pain (ED) Additional Instructions: You have been evaluated in the emergency department today for abdominal pain. Your evaluation did not show evidence of medical conditions requiring emergent intervention at this time. Please schedule an appointment with your primary care physician this week. You are being referred to a stock repairer for further evaluation of your symptoms. Return to the emergency department if you experience worsening or uncontrolled pain, fevers 100.4? F or greater, recurrent vomiting, inability to tolerate food or fluids by mouth, bloody stools or vomit, black or tarry stools, or any other concerning symptoms. Prescriptions: No Action Robitussin Cough and Cold CF 2.5-5-50 mg/5 mL liquid 20 ml PO Q4H PRN (Reason: cold symptoms) Qty: 118 0RF Referrals: [facility] [place] [facility] [Provider Group] Stand Alone Forms: Work/School Release
[2023-03-09 12:20] VITALS: BP 124/82; PULSE 63; RESP 20; TEMP 36.6; O2SAT 97
[2023-03-09 15:00] VITALS: BP 105/66; PULSE 80; RESP 18; TEMP 36.7; O2SAT 100
--- NOTE | 2023-03-09 15:02 | PC.NURSE ---
Alert and oriented. states he has stomach that has been going on for many months. States worse after eating but better with rest. Awaiting cat scan results
--- NOTE | 2023-03-09 15:48 | PC.NURSE ---
Alert and oriented. Reviewed discharge plan with patient and family member.
== END 2023-03-09 15:48 | disposition home or self-care (01) ==
PROVIDERS: Emergency Provider Emergency Medicine Emergency Medical Services; PCP Internal Medicine
DX: R10.11 Right upper quadrant pain (principal)
CPT/HCPCS: 36415; 76705; 80053; 81001; 85025; 99284

== ENCOUNTER 2023-06-17 18:11 | Outpatient (REF) | payer MEDICAID, SELFPAY ==
[2023-06-17 19:06] LABS: Influenza A PCR NEGATIVE (Negative); Influenza B PCR NEGATIVE (Negative); Resp Syncy Virus RNA Qual PCR NEGATIVE (Negative); SARS COV2 PCR INHOUSE NEGATIVE (Negative)
== END 2023-06-17 18:12 | disposition home or self-care (01) ==
LOC: HO.HHCLNP 18:11
PROVIDERS: Visit Provider Internal Medicine
DX: Z20.822 Contact with and (suspected) exposure to COVID-19 (principal); R05.9 Cough, unspecified
CPT/HCPCS: 0241U

== ENCOUNTER 2023-07-08 14:46 | Emergency (ER) | payer MEDICAID, SELFPAY ==
[2023-07-08 15:40] VITALS: BP 125/88; PULSE 78; RESP 18; TEMP 36.1; O2SAT 98; BMI 22.7
--- NOTE | 2023-07-08 15:40 | ED.DENTAL ---
HPI - Dental/Oral General Chief complaint: Dental/Oral Stated complaint: Dental pain Time Seen by Provider: 07/08/23 15:46 Source: patient Mode of arrival: ambulatory Limitations: no limitations History of Present Illness HPI Narrative: 27 yo male with no medical history who presents to the ER for evaluation of severe right upper dental pain that started at noon today. Known upper molar is broken. He does not have routine dental care. No facial swelling, difficulty opening the mouth, neck swelling, fever, chills, or drainage from the tooth or gums. Called urgent care dentist and was not able to get in until 07/30/23. Complaint: tooth pain Location: Tooth # (3) Onset (ago): hour(s) Duration: constant Relieving factors: nothing Exacerbating factors: nothing Context: poor dental care Treatment prior to arrival: oral analgesic (tylenol) Related Data Previous Rx's Medication Instructions Recorded qspnoukacsege-BO-[id number] 2.5 20 ml PO Q4H PRN cold symptoms 09/14/21 mg-5 mg-50 mg/5 mL oral liquid #118 mL (Robitussin Cough and Cold CF) amoxicillin 875 mg-potassium 1 tab PO BID #20 tabs 07/08/23 clavulanate 125 mg tablet ibuprofen 600 mg tablet 600 mg PO Q8H PRN pain #30 tabs 07/08/23 oxycodone-acetaminophen 5 mg-325 1 tab PO Q8H PRN severe pain 07/08/23 mg tablet (Percocet) (scale score 7-10) #6 tabs Allergies Allergy/AdvReac Type Severity Reaction Status Date / Time No Known Allergies Allergy Verified 07/08/23 15:40 Review of Systems Review of Systems: Yes all other systems are reviewed and are negative [facility] Past Medical History Medical History No known health problems Social History Social History Alcohol intake: current Alcohol intake frequency: a few times a month Patient Tobacco Use Status: Former Tobacco user Substance Use Type: Marijuana Advance Directives: No Advance Directives Information Provided: No Physical Exam Vital Signs: Vital Signs: Last Vital Signs Temp 96.9 F 07/08/23 15:40 Pulse 78 07/08/23 15:40 Resp 18 07/08/23 15:40 BP 125/88 07/08/23 15:40 Pulse Ox 98 07/08/23 15:40 O2 Del Method Room Air 07/08/23 15:40 BMI result Body Mass Index 22.7 Appearance: Alert. Oriented X3. No acute distress. HEENT: normal external inspection. face is symmetrical. no trimus. right upper molar is cracked and missing 1/2 of the tooth with exposed dentin. mild surrounding gingival swelling and tenderness without fluctuance. tooth is not mobile. CVS: Normal heart rate and rhythm. Pulses normal. Respiratory: No respiratory distress. Skin: Skin warm and dry. Normal skin color. Normal skin turgor. No rashes. Extremities: normal inspection Neuro: Oriented X 3. No motor deficit. No sensory deficit. Medical Decision Making Medical Decision Making MDM Narrative: 27 yo male presenting with right upper dental pain that started a few hours ago in a known cracked molar. No trismus or facial swelling. no need for imaging today Needs dental evaluation for possible extraction vs root canal vs other dental intervention. Will start on empiric abx, pain control and have him f/u with dentist. stable for d/c home Differential Diagnosis Differential Diagnoses: The differential diagnosis associated with the presentation includes fractured tooth, dental abscess, toothache Independent Historian Clinical information obtained from an independent historian. History obtained from or confirmed by: Parent External Record Review External record reviewed: Outpatient record and Prior outpatient labs Prescription Management I considered prescription management with: Pain Medication and Antibiotic Critical Care Time Critical Care Time Critical Care Time: No Discharge Plan Discharge Clinical Impression: Fracture of tooth Qualifiers: Encounter type: initial encounter Fracture type: closed Qualified Code(s): S02.5XXA - Fracture of tooth (traumatic), initial encounter for closed fracture Patient Disposition: Home, Self-Care Instructions: Toothache (ED) Additional Instructions: Take the prescribed antibiotics as directed, complete the entire course and do not miss any doses Avoid food that is very hot or very cold Take the prescribed ibuprofen as directed - take with food Take the prescribed oxycodone as needed for severe pain only. do not drive after taking this medication Follow up with a dentist as soon as possible Prescriptions: New amoxicillin-pot clavulanate 875-125 mg tablet 1 tab PO BID Qty: 20 0RF ibuprofen 600 mg tablet 600 mg PO Q8H PRN (Reason: pain) Qty: 30 0RF oxycodone-acetaminophen [Percocet] 5-325 mg tablet 1 tab PO Q8H PRN (Reason: severe pain (scale score 7-10)) Qty: 6 0RF Rx Instructions: Partial Fill upon patient request. No Action Robitussin Cough and Cold CF 2.5-5-50 mg/5 mL liquid 20 ml PO Q4H PRN (Reason: cold symptoms) Qty: 118 0RF Referrals: Conner Tran MD [Primary Care Provider] - Stand Alone Forms: Work/School Release Interventions: ED Discharge Assessment Last Done: 07/08/23 15:57 Discharge Date/Time: 07/08/23 15:57
== END 2023-07-08 15:57 | disposition home or self-care (01) ==
PROVIDERS: Emergency Provider Emergency Medicine; PCP Internal Medicine
DX: S02.5XXA Fracture of tooth (traumatic), initial encounter for closed fracture (principal); X58.XXXA Exposure to other specified factors, initial encounter; Y93.9 Activity, unspecified; Y92.9 Unspecified place or not applicable; Y99.9 Unspecified external cause status
CPT/HCPCS: 99282; 99283

== ENCOUNTER 2024-03-01 08:04 | Emergency (ER) | payer OTHER, MEDICAID, SELFPAY ==
--- NOTE | ~2024-03-01 | XR_ITS ---
EXAMINATION: XR KNEE, LEFT CLINICAL INFORMATION: Pain. Twisting injury. COMPARISON: None available. TECHNIQUE: Two views of the left knee. FINDINGS: No fracture or joint effusion. Alignment is anatomic. Joint spaces are maintained. No abnormal soft tissue calcification. XR/XR knee LT 2V IMPRESSION: No radiographic evidence of acute fracture or dislocation.
[2024-03-01 08:06] VITALS: BP 133/74; PULSE 68; RESP 16; TEMP 36.8; O2SAT 99; BMI 25.8
--- NOTE | 2024-03-01 09:07 | ED_ITS ---
HPI - Extremity Injury (Lower) General Chief Complaint: Extremity Injury, Lower Stated Complaint: L knee injury Time Seen by Provider: 03/01/24 09:00 Source: patient, RN notes reviewed and old records reviewed Mode of arrival: ambulatory Limitations: no limitations History of Present Illness HPI Narrative: 28 year old male with no significant pmhx presents to the ED today for evaluation of atraumatic left knee pain x4 days. 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 On , upon stepping out of the truck he felt a snap in his left knee. He reports pain to the lateral aspect of the knee, worse with ambulating and flexing the knee. He was able to complete the last 2 hours of his shift that day. He has been taking tylenol and motrin at home with minimal relief. Last dose last night. Able to ambulate with discomfort. Denies injury/ trauma/ fall. Denies numbness, tingling, weakness of the LEs. Denies fever, chills. Related Data Previous Rx's ?Medication ?Instructions ?Recorded [id number] 2.5 20 ml PO Q4H PRN cold symptoms 09/14/21 mg-5 mg-50 mg/5 mL oral liquid #118 mL (Robitussin Cough and Cold CF) amoxicillin 875 mg-potassium 1 tab PO BID #20 tabs 07/08/23 clavulanate 125 mg tablet ibuprofen 600 mg tablet 600 mg PO Q8H PRN pain #30 tabs 07/08/23 oxycodone-acetaminophen 5 mg-325 1 tab PO Q8H PRN severe pain 07/08/23 mg tablet (Percocet) (scale score 7-10) #6 tabs naproxen 500 mg tablet 500 mg PO Q8-12H PRN pain (scale 03/01/24 score 4-6) #20 tabs prednisone 20 mg tablet 40 mg (2 x 20 mg) PO DAILY 5 days 03/01/24 #10 tabs Allergies Allergy/AdvReac Type Severity Reaction Status Date / Time No Known Allergies Allergy Verified 03/01/24 08:07 Review of Systems Review of Systems: Constitutional: No fever, chills, fatigue, night sweats, weight changes ENT/Mouth: No ear pain, hearing loss, nasal congestion, sinus pain, rhinorrhea, sore throat Eyes: No eye pain, swelling, redness, vision changes, discharge Cardio: No chest pain, palpitations, QUINTERO, orthopnea, peripheral edema Pulm: No SOB, cough, sputum, wheezing, dyspnea, hemoptysis GI: No nausea, vomiting, hematemesis, abdominal pain, diarrhea, constipation, hematochezia, melena : No irregular bleeding, dysuria, frequency, urgency, hesitancy, hematuria, flank pain, urinary flow changes, urinary incontinence or retention MSK: No back pain, neck pain, joint pain, myalgias Skin: No lesions, rashes, +left knee pain Neuro: No weakness, numbness, paresthesias, LOC, dizziness, headache Psych: No anxiety/panic, depression, SI/HI, AH/VH All other systems reviewed and are negative. [facility] Past Medical History Attestation statement: The following information was validated with the patient. Source: old records reviewed and nursing notes reviewed Medical History No known health problems Social History Social History Alcohol intake: current Alcohol intake frequency: a few times a month Patient Tobacco Use Status: Former Tobacco user Substance Use Type: Marijuana Advance Directives: No Advance Directives Information Provided: No Do you have a plan to hurt others: No Plan Physical Exam Vital Signs: Vital Signs: Last Vital Signs Temp 98.3 F 03/01/24 08:06 Pulse 68 03/01/24 08:06 Resp 16 03/01/24 08:06 BP 133/74 03/01/24 08:06 Pulse Ox 99 03/01/24 08:06 O2 Del Method Room Air 03/01/24 08:06 BMI result Body Mass Index 25.8 Vital signs stable Const: General: cooperative, healthy appearing, comfortable and no acute distress Orientation/consciousness: patient oriented x3 Limitations: no limitations HEENT: Head: Yes normal to inspection, Yes normocephalic and Yes atraumatic Eyes: General: appearance normal, both eyes and all related structures Conjunctivae: conjunctivae normal Sclerae: sclerae normal Pupils: Equal, round and reactive pupils present Neck: Neck: Yes normal visual inspection and Yes full ROM Resp: Effort & Inspection: normal respiratory effort Auscultation: clear to auscultation bilaterally Cardio: Rate: regular rate Rhythm: regular rhythm Skin: General skin exam: no rashes or lesions noted Neuro: General: patient oriented x3, gait normal and moves all extremities Cranial nerves: Yes Equal, round and reactive pupils present Extrem: Other: + ambulating with steady gait. No overl giselle skin changes or effusion noted to left knee or left ankle. Full ROM intact to left knee with pain elicited on flexion. Tender to palpation over the lateral aspect of anterior knee without palpable deformity, warmth, crepitus, fluctuance. No valgus or varus laxity. Negative anterior and posterior drawer test. No high riding patella. No tenderness over plantar fascia or Achilles tendon. No calf tenderness. No peripheral edema. 2+ PT, DP and popliteal pulses bilaterally. General: Yes normal to inspection Course Course Course Narrative: 1000-- xrays of left knee do not demonstrate fracture or significant effusion to suggest ligament/tendon tear. likely small sprain of left knee. will apply yash wrap and discharge home with prednisone and naproxen. educated on RICE therapy. Patient has remained stable throughout ED visit today. Discussed worrisome signs and symptoms and when to return to the ED. All questions answered at this time. Patient is agreeable with disposition and stable for discharge. Medications Administered Discontinued Medications Generic Name Dose Route Start Last Admin Trade Name Freq PRN Reason Stop Dose Admin Ketorolac Tromethamine 30 mg 03/01/24 09:26 03/01/24 09:48 Ketorolac Tromethamine 30 Mg/Ml Vial IM 03/01/24 09:27 30 mg ONCE ONE Administration Medical Decision Making Medical Decision Making [facility] Narrative: 28 year old male with no significant pmhx presents to the ED today for evaluation of atraumatic left knee pain x4 days. Vital signs stable, afebrile. He is nontoxic-appearing and in no acute distress. On exam, patient ambulating with steady gait. No overlying skin changes or effusion noted to left knee or left ankle. Full ROM intact to left knee with pain elicited on flexion. Tender to palpation over the lateral aspect of anterior knee without palpable deformity, warmth, crepitus, fluctuance. No valgus or varus laxity. Negative anterior and posterior drawer test. No highriding patella. No tenderness over plantar fascia or Achilles tendon. No calf tenderness. No peripheral edema. 2+ PT, DP and popliteal pulses bilaterally. Differential diagnosis includes knee sprain, knee strain, contusion. Lower suspicion for fracture, dislocation. Unlikely NV compromise, compartment syndrome, threat to limb, gout/pseudogout, ramos's cyst, DVT, septic joint/arthritis. Plan for imaging and pain control. Differential Diagnosis Differential Diagnoses: The differential diagnosis associated with the presentation includes as above. Admission/Observation not indicated Independent Interpretation I performed an independent interpretation of an: Plain X-Ray Interpretation: XR left knee without fracture, agree with radiologist's interpretation. Radiology Impression Discussion of test interpretation with radiology: I have reviewed the radiologist's reading. Radiologist Impression: EXAMINATION: XR KNEE, LEFT CLINICAL INFORMATION: Pain. Twisting injury. COMPARISON: None available. TECHNIQUE: Two views of the left knee. FINDINGS: No fracture or joint effusion. Alignment is anatomic. Joint spaces are maintained. No abnormal soft tissue calcification. XR/XR knee LT 2V IMPRESSION: No radiographic evidence of acute fracture or dislocation. External Record Review External record reviewed: Inpatient record, Office record, Outpatient record, Prior outpatient labs, Prior outpatient radiology, Primary care record and Outside ED record Prescription Management I considered prescription management with: Pain Medication Social Determinants Patient?s care significantly limited by Social Determinants of Health including: Other Social Determinant of Health Procedures Orthopedic Splinting/Casting Injury #1: Side: left Lower Extremity Injury Location: knee Lower Extremity Immobilizer: Yash wrap Critical Care Time Critical Care Time Critical Care Time: No Discharge Plan Discharge Clinical Impression: Left knee sprain Patient Disposition: Home, Self-Care Instructions: Knee Sprain (ED) Additional Instructions: The x-ray of your left knee does not demonstrate fracture. You likely sprained the knee. You were provided with an Yash wrap to assist with compression and comfort. Prednisone has been sent to your pharmacy to help with inflammation and pain. Naproxen as an anti-inflammatory that has been sent to your pharmacy. Take this as needed for pain/discomfort. Do not take this with other NSAIDs such as ibuprofen or Aleve as this may cause increased risk of GI bleeding. Make sure you are using RICE therapy at home- rest, ice, compression, elevation above the heart. Stay off of the knee for the next few days. Return with new or worsening symptoms. Follow-up with PCP as needed. If symptoms continue, you may follow-up with an orthopedic doctor. A referral has been provided to you. In the case of an emergency call 911. Prescriptions: New prednisone 20 mg tablet 40 mg PO DAILY 5 Days Qty: 10 0RF naproxen 500 mg tablet 500 mg PO Q8-12H PRN (Reason: pain (scale score 4-6)) Qty: 20 0RF No Action Robitussin Cough and Cold CF 2.5-5-50 mg/5 mL liquid 20 ml PO Q4H PRN (Reason: cold symptoms) Qty: 118 0RF amoxicillin-pot clavulanate 875-125 mg tablet 1 tab PO BID Qty: 20 0RF ibuprofen 600 mg tablet 600 mg PO Q8H PRN (Reason: pain) Qty: 30 0RF oxycodone-acetaminophen [Percocet] 5-325 mg tablet 1 tab PO Q8H PRN (Reason: severe pain (scale score 7-10)) Qty: 6 0RF Rx Instructions: Partial Fill upon patient request. Referrals: [facility] [place] [facility]geons [Provider Group] Conner Tran MD [Primary Care Provider] - Stand Alone Forms: Work/School Release Print Language: Cuban
[2024-03-01] MEDS: Ketorolac Tromethamine 30 MG/ML VIAL IM (09:48)
[2024-03-01 10:15] VITALS: BP 133/79; PULSE 67; RESP 18; TEMP 36.6; O2SAT 99
== END 2024-03-01 10:16 | disposition home or self-care (01) ==
PROVIDERS: Emergency Provider Student in an Organized Health Care Education/Training Program; PCP Internal Medicine
DX: S83.92XA Sprain of unspecified site of left knee, initial encounter (principal); M25.562 Pain in left knee; X50.1XXA Overexertion from prolonged static or awkward postures, initial encounter; Y93.9 Activity, unspecified; Y92.812 Truck as the place of occurrence of the external cause; Y99.0 Civilian activity done for income or pay
CPT/HCPCS: 73560; 96372; 99283; 99284; J1885

== ENCOUNTER 2024-03-30 09:18 | Inpatient (IN) | payer MEDICAID, SELFPAY ==
[2024-03-30] VITALS (11 sets, daily range): BP systolic 120–129; BP diastolic 72–81; PULSE 65–80; RESP 13–18; TEMP 36.4–37.3; O2SAT 96–100; BMI 23.4; BMI 25.5
--- NOTE | ~2024-03-30 | CT_ITS ---
EXAMINATION: CT ABDOMEN AND PELVIS WITH CONTRAST CLINICAL INFORMATION: Right lower quadrant tenderness COMPARISON: CT abdomen pelvis 09/17/2021, ultrasound abdomen 03/09/2023 TECHNIQUE: Multidetector volumetric images were obtained from the superior aspect of the liver through the pubic symphysis following administration 85 mL of Omnipaque 350 intravenous contrast. Sagittal and coronal reformatted images were obtained on the technologist's workstation. Oral contrast: No This CT examination was performed using dose optimization techniques as appropriate, variously including the following: *Automated exposure control *Adjustment of mA and/or kV according to patient size (this includes techniques or standardized protocols for targeted exams where dose is matched to indication/reason for exam; i.e. extremities or head) *Use of iterative reconstruction technique DLP: 428 mGy-cm FINDINGS: LUNG BASES: The visualized lung bases are unremarkable. LIVER, GALLBLADDER, AND BILIARY TREE: The liver is normal in size, shape, and attenuation. No focal hepatic lesion or biliary ductal dilatation is present. The gallbladder is unremarkable with no evidence of radiopaque gallstones, gallbladder wall thickening, or obvious pericholecystic inflammatory changes. PANCREAS: Unremarkable. SPLEEN: Unremarkable. ADRENAL GLANDS: Unremarkable. KIDNEYS AND URETERS: The kidneys are normal in size, shape, and attenuation. No hydronephrosis, hydroureter, or calculi seen. A benign left sided mid renal 1.6 cm Bosniak class I renal cyst is noted which requires no additional imaging or follow up. No solid renal masses are seen. BLADDER: Unremarkable. GASTROINTESTINAL TRACT: The appendix is enlarged with a diameter of 1.3 cm. An appendicolith is seen proximally. Inflammatory changes seen in the periappendiceal retroperitoneal fat. No extraluminal air. No drainable fluid collections are seen. The small and large bowel are unremarkable. ABDOMINAL WALL: No significant hernia is appreciated. LYMPH NODES: Normal. VASCULAR: Unremarkable. PELVIC VISCERA: The prostate and seminal vesicles are unremarkable. OSSEOUS STRUCTURES: Unremarkable. CT/CT abdomen pelvis w IV con IMPRESSION: Acute uncomplicated appendicitis. Fleischner guidelines were followed.
[2024-03-30 10:00] LABS: MANUAL DIFF FLAG NO
[2024-03-30 10:12] LABS: Basophils Percent Auto 0.2 % (0-2); Eosinophils Absolute Auto 0.2 X10*3/uL (0.0-0.4); Eosinophils Percent Auto 0.9 % (0-4); Hematocrit 46.8 % (42.0-52.0); Hemoglobin 16.5 g/dl (14.0-18.0); Imm Gran Abs Auto 0.05 X10*3/uL (0.00-0.03); Imm Gran Pct Auto 0.3 % (0.0-0.4); Lymphocytes Percent Auto 11.7 % (20-40); Mean Corpuscular HGB Conc 35.3 g/dl (31.0-36.0); Mean Corpuscular Hemoglobin 30.6 pg (27.0-33.0); Mean Corpuscular Volume 86.8 fL (80.0-98.0); Mean Platelet Volume 9.6 fL (9.4-12.4); Monocytes Absolute Auto 1.2 X10*3/uL (0.1-1.2); Monocytes Percent Auto 6.7 % (2-11); Neutrophils Absolute Auto 13.8 x10*3/uL (2.0-8.3); Neutrophils Percent Auto 80.2 % (45-73); Platelet Count 284 X10*3/uL (160-400); Red Blood Count 5.39 X10*6/uL (4.60-5.80); Red Cell Distribution Width 12.4 % (11.0-16.0); White Blood Count 17.3 X10*3/uL (4.8-10.8)
[2024-03-30 10:17] LABS: Alanine Aminotransferase 15 U/L (0-40); Albumin Level 4.9 g/dL (3.5-5.0); Alkaline Phosphatase 79 U/L (39-117); Anion Gap 12 (12-20); Aspartate Amino Transferase 16 U/L (5-37); Blood Urea Nitrogen 14 mg/dL (9-16); Calcium 10.1 mg/dL (8.4-10.2); Carbon Dioxide 26 mmol/L (22-29); Chloride 104 mmol/L (96-108); Creatinine Clr Calc Pharmacy 141.9; Estimated Glomerular Filt Rate > 60; Glucose Random 115 mg/dL (60-115); Lipase 14 U/L (8-78); Potassium 3.8 mmol/L (3.3-5.1); Sodium 138 mmol/L (135-145); Total Protein 7.8 g/dL (6.5-8.0)
[2024-03-30 10:38] LABS: Influenza A PCR NEGATIVE (Negative); Influenza B PCR NEGATIVE (Negative); Resp Syncy Virus RNA Qual PCR NEGATIVE (Negative); SARS COV2 PCR INHOUSE NEGATIVE (Negative)
--- NOTE | 2024-03-30 13:00 | ED_ITS ---
HPI - General Adult General Chief complaint: Abdominal Pain Stated complaint: R side abd pain Time Seen by Provider: 03/30/24 12:59 Source: patient Mode of arrival: ambulatory Limitations: no limitations History of Present Illness ED Provider: Ravi Lucero NP HPI narrative: Patient is a 28-year-old male presenting to the ED with complaint of RLQ abdominal pain, nausea, vomiting, and diarrhea since Saturday afternoon. States his pain improves with rest and worsens with movement. Denies fevers but reports chills. Denies any hematemesis, hematochezia or melena. Denies any chest pain, palpitations or dyspnea. MD complaint: abdominal pain Onset (ago): day(s) Location: abdomen Radiation: non-radiation Severity: severe Severity scale (1-10): 9 Quality: sharp Pain Consistency: colicky Relieving factors: rest Exacerbating factors: movement Associated symptoms: nausea/vomiting Treatments prior to arrival: none Related Data Previous Rx's ?Medication ?Instructions ?Recorded [id number]-[id number] 2.5 20 ml PO Q4H PRN cold symptoms 09/14/21 mg-5 mg-50 mg/5 mL oral liquid #118 mL (Robitussin Cough and Cold CF) amoxicillin 875 mg-potassium 1 tab PO BID #20 tabs 07/08/23 clavulanate 125 mg tablet ibuprofen 600 mg tablet 600 mg PO Q8H PRN pain #30 tabs 07/08/23 oxycodone-acetaminophen 5 mg-325 1 tab PO Q8H PRN severe pain 07/08/23 mg tablet (Percocet) (scale score 7-10) #6 tabs naproxen 500 mg tablet 500 mg PO Q8-12H PRN pain (scale 03/01/24 score 4-6) #20 tabs prednisone 20 mg tablet 40 mg (2 x 20 mg) PO DAILY 5 days 03/01/24 #10 tabs Allergies Allergy/AdvReac Type Severity Reaction Status Date / Time No Known Allergies Allergy Verified 03/30/24 09:43 Review of Systems 2 Review of Systems: As per HPI Yes all other systems are reviewed and are negative Constitutional: Constitutional: Reports as per HPI [facility] Past Medical History Medical History No known health problems Social History Social History Alcohol intake: current Alcohol intake frequency: a few times a month Patient Tobacco Use Status: Former Tobacco user Substance Use Type: Marijuana Advance Directives: No Advance Directives Information Provided: Yes Do you have a plan to hurt others: No Plan Physical Exam ED Vital Signs: Vital Signs - 24 hr 03/30/24 09:40 03/30/24 13:33 Temperature 98.2 F Pulse Rate 66 Respiratory Rate 18 14 Blood Pressure 128/75 Pulse Oximetry 98 Oxygen Delivery Method Room Air BMI result Body Mass Index 23.4 Vital signs have been reviewed and appear to be correct. Blood pressure normal. Heart rate normal. Respiratory rate normal. Temperature normal. Oxygen saturation normal. Const General: cooperative, healthy appearing and no acute distress Orientation/consciousness: oriented to person, oriented to place, oriented to time and patient oriented x3 Limitations: no limitations HENMT Head: Yes normocephalic and Yes atraumatic Ears: external ears normal General nose exam: Normal external nose present Face and sinus: Yes face symmetric Mouth: oropharynx normal and moist mucous membranes Throat: Yes uvula midline Eyes Pupils: Equal, round and reactive pupils present Neck Neck: Yes normal visual inspection and Yes supple Resp Effort & Inspection: normal respiratory effort and able to speak in complete sentences Auscultation: clear to auscultation bilaterally Cardio Rate: regular rate Rhythm: regular rhythm Heart sounds: S1 normal heart sound present and S2 normal heart sound present GI Palpation (GI): Soft to palpation and Tenderness to palpation present (GI) in the RLQ Auscultation: normoactive bowel sounds General: Yes no CVA tenderness Back/Spine/Pelvis Back: no CVA tenderness Skin General skin exam: elasticity normal and turgor normal Neuro General: oriented to person, oriented to place, oriented to time, patient oriented x3, moves all extremities, no focal motor deficits and CN's II-XI intact bilaterally Cranial nerves: Yes Equal, round and reactive pupils present Cognition (Neuro): normal cognition Extrem General: Yes full ROM, Yes no pedal edema and Yes no calf tenderness Psych Mental Status: mental status grossly normal Affect: normal affect Thought process: Normal thought process present Course Reevaluation(s) Reevaluation #1: Patient received in sign-out at change of shift pending CT imaging which shows acute uncomplicated appendicitis. I discussed this with the patient and family. Plan to discuss with general surgery team Time: 17:22 Medications Administered Discontinued Medications Generic Name Dose Route Start Last Admin Trade Name Ashish PRN Reason Stop Dose Admin Sodium Chloride 1,000 mls @ 999 mls/hr 03/30/24 13:15 03/30/24 15:37 Ns IV 03/30/24 14:15 Infused .Q1H1M DOMINIQUE Infusion Iohexol 100 ml 03/30/24 15:07 03/30/24 15:07 Iohexol 350 Mg/Ml 100 Ml Infus..Btl IV 03/30/24 15:08 85 ml ONCE ONE Administration Morphine Sulfate 4 mg 03/30/24 13:03 03/30/24 13:33 Morphine Sulfate 4 Mg/Ml Cartridge IVPUSH 03/30/24 13:04 4 mg ONCE ONE Administration Protocol Ondansetron HCl 4 mg 03/30/24 13:03 03/30/24 13:33 Ondansetron Hcl 4 Mg/2 Ml Vial IVPUSH 03/30/24 13:04 4 mg ONCE ONE Administration Medical Decision Making Medical Decision Making [facility] Narrative: Patient is a 28-year-old male presenting to the ED with complaint of RLQ abdominal pain, nausea, vomiting, and diarrhea since Saturday afternoon. On exam patient is awake, A+Ox3, VS WNL, afebrile, normal neurological exam without focal deficits, physical exam findings as above. Given reported symptoms and physical exam findings, initial differential includes appendicitis, diverticulitis, gastroenteritis. Labs notable for leukocytosis with left shift,no other significant abnormalities. Patient signed out to [facility] Corey pending CT results. Differential Diagnosis Differential Diagnoses: The differential diagnosis associated with the presentation includes As per MDM. Admission/Observation Consideration of admission/observation: Escalation of care including admission/observation considered Lab Data [facility] Lab Attestation statement: I reviewed the patient's lab results. As per MDM. 03/30/24 09:51 03/30/24 09:51 Labs: Lab Results 03/30/24 Range/Units 09:51 WBC 17.3 H (4.8-10.8) X10*3/uL RBC 5.39 (4.60-5.80) X10*6/uL Hgb 16.5 (14.0-18.0) g/dl Hct 46.8 (42.0-52.0) % MCV 86.8 (80.0-98.0) fL MCH 30.6 (27.0-33.0) pg MCHC 35.3 (31.0-36.0) g/dl RDW 12.4 (11.0-16.0) % Plt Count 284 (160-400) X10*3/uL MPV 9.6 (9.4-12.4) fL Immature Gran % (Auto) 0.3 (0.0-0.4) % Neut % (Auto) 80.2 H (45-73) % Lymph % (Auto) 11.7 L (20-40) % Gila % (Auto) 6.7 (2-11) % Eos % (Auto) 0.9 (0-4) % Baso % (Auto) 0.2 (0-2) % Lymph # (Auto) 2.0 (1.2-4.9) X10*3/uL Gila # (Auto) 1.2 (0.1-1.2) X10*3/uL Eos # (Auto) 0.2 (0.0-0.4) X10*3/uL Baso # (Auto) 0.0 (0.0-0.2) X10*3/uL Abs Immat Gran (auto) 0.05 H (0.00-0.03) X10*3/uL Absolute Neuts (auto) 13.8 H (2.0-8.3) x10*3/uL Absolute Nucleated RBC 0.000 (0.0-0.012) X10*3/uL Nucleated RBC % (auto) 0.0 (0.0-0.2) /100WBC Sodium 138 (135-145) mmol/L Potassium 3.8 (3.3-5.1) mmol/L Chloride 104 (96-108) mmol/L Carbon Dioxide 26 (22-29) mmol/L Anion Gap 12 (12-20) BUN 14 (9-16) mg/dL Creatinine 0.80 (0.5-1.4) mg/dL Estim Creat Clear Calc 141.9 Estimated GFR > 60 Random Glucose 115 (60-115) mg/dL Calcium 10.1 (8.4-10.2) mg/dL Total Bilirubin 1.0 (0.0-1.0) mg/dL AST 16 (5-37) U/L ALT 15 (0-40) U/L Alkaline Phosphatase 79 (39-117) U/L Total Protein 7.8 (6.5-8.0) g/dL Albumin 4.9 (3.5-5.0) g/dL Lipase 14 (8-78) U/L Influenza Type A (PCR) NEGATIVE (Negative) Influenza Type B (PCR) NEGATIVE (Negative) RSV RNA Qual (PCR) NEGATIVE (Negative) SARS-CoV-2 RNA (RT-PCR) NEGATIVE (Negative) External Record Review External record reviewed: Inpatient record, Office record and Outpatient record Discharge Plan Discharge Clinical Impression: Acute appendicitis Patient Disposition: Admitted As Inpatient Prescriptions: No Action Robitussin Cough and Cold CF 2.5-5-50 mg/5 mL liquid 20 ml PO Q4H PRN (Reason: cold symptoms) Qty: 118 0RF amoxicillin-pot clavulanate 875-125 mg tablet 1 tab PO BID Qty: 20 0RF ibuprofen 600 mg tablet 600 mg PO Q8H PRN (Reason: pain) Qty: 30 0RF oxycodone-acetaminophen [Percocet] 5-325 mg tablet 1 tab PO Q8H PRN (Reason: severe pain (scale score 7-10)) Qty: 6 0RF Rx Instructions: Partial Fill upon patient request. prednisone 20 mg tablet 40 mg PO DAILY 5 Days Qty: 10 0RF naproxen 500 mg tablet 500 mg PO Q8-12H PRN (Reason: pain (scale score 4-6)) Qty: 20 0RF Print Language: Maltese
[2024-03-30] MEDS: 0.9 % Sodium Chloride 1,000 ML 999 ML IV (13:32)
[2024-03-30] MEDS: Morphine Sulfate 4 MG/ML CARTRIDGE IVPUSH ×2 (13:33→18:13)
[2024-03-30] MEDS: ondansetron HCL 4 MG/2 ML VIAL IVPUSH (13:33)
[2024-03-30] MEDS: iohexoL 350 MG/ML 100 ML INFUS..BTL IV (15:07)
--- NOTE | 2024-03-30 18:01 | P.HPGS_ITS ---
History of Present Illness History of Present Illness Date of Service: 03/31/24 Chief complaint: Acute appendicitis Narrative: Zoran Cueva is a 28 year old male here in the ER because of right lower quadrant pain. He says that this started about 2 days ago. This was a very low intensity. However, he says today that this seems to be a little worse than yesterday. He denies any nausea or vomiting. He does admit to some loose stools He denies any fever at home although he states that he may have felt chilly. He denies any similar episodes in the past. He denies any significant medical problems. Review of Systems Constitutional: Constitutional: Denies chills and Denies fever(s) Cardiovascular: Cardiovascular: Denies chest pain, Denies dyspnea and Denies dyspnea on exertion Respiratory: Respiratory: Denies cough, Denies dyspnea and Denies dyspnea on exertion Gastrointestinal: Gastrointestinal: Denies hematochezia and Denies change in bowel habits Genitourinary: Genitourinary: Denies hematuria and Denies difficulty urinating Musculoskeletal: Musculoskeletal: Denies back pain and Denies limited range of motion Neurologic: Denies focal weakness and Denies convulsions Psychiatric: Psychiatric: Denies depression and Denies mood swings PMFSH Past Medical History Medical History No known health problems Social History Social History Household Members: Family Housing: House Do you presently have visiting nurse or other home services: No Alcohol intake: current Alcohol intake frequency: a few times a month Patient Tobacco Use Status: Former Tobacco user Use of substances other than those prescribed or required for medical reasons: Yes Substance Use Type: Marijuana Substance Use Frequency: Daily Last Used Substance: Just Prior to Admission Currently Displaying Signs/Symptoms of Drug Intoxication Withdrawal: No Any prior treatment program specific to substance use: No Have you been hit, kicked, punched, or otherwise hurt by someone within the past year? If so, by whom?: No Do you feel safe in your current relationship?: Yes Is there a partner from a previous relationship who is making you feel unsafe now?: No Are you made to feel afraid or neglected: No Advance Directives: No Advance Directives Information Provided: Yes Do you have a plan to hurt others: No Plan Recently lost weight without trying: No Nutrition Risks: No Nutritional Risk Poor oral hygiene: No Meds Allergies Allergy/AdvReac Type Severity Reaction Status Date / Time No Known Allergies Allergy Verified 03/30/24 09:43 Home Medications ?Medication ?Instructions ?Recorded ?Confirmed ?Last Taken ?Type acetaminophen 500 mg tablet 1,000 mg PO Q6H PRN Fever Or Pain 03/31/24 03/31/24 Unknown History bismuth subsalicylate 262 mg/15 mL 524 mg PO Q30M PRN GI Upset 03/31/24 03/31/24 Unknown History oral suspension (Pepto-Bismol) Physical Exam Vital Signs: Vital Signs: Last Vital Signs Temp 98.2 F 03/30/24 09:40 Pulse 66 03/30/24 09:40 Resp 14 03/30/24 13:33 BP 128/75 03/30/24 09:40 Pulse Ox 98 03/30/24 09:40 O2 Del Method Room Air 03/30/24 09:40 BMI result Body Mass Index 23.4 Const: General: comfortable and no acute distress Orientation/consci ousness: patient oriented x3 Neck: Neck: Yes no lymphadenopathy Resp: Auscultation: clear to auscultation bilaterally Cardio: Rhythm: regular rhythm GI: Inspection: No distended Palpation (GI): Soft to palpation, Tenderness to palpation present (GI) (Tender to deep palpation right lower quadrant), no guarding and No Rebound tenderness present Neuro: General: patient oriented x3 Results Results Labs: Short CBC 03/30/24 Range/Units 09:51 WBC 17.3 H (4.8-10.8) X10*3/uL Hgb 16.5 (14.0-18.0) g/dl Hct 46.8 (42.0-52.0) % Plt Count 284 (160-400) X10*3/uL BMP 03/30/24 09:51 Sodium 138 Potassium 3.8 Chloride 104 Carbon Dioxide 26 BUN 14 Creatinine 0.80 Calcium 10.1 Liver Function 03/30/24 Range/Units 09:51 Total Bilirubin 1.0 (0.0-1.0) mg/dL AST 16 (5-37) U/L ALT 15 (0-40) U/L Alkaline Phosphatase 79 (39-117) U/L Albumin 4.9 (3.5-5.0) g/dL Abdomen CT scan report/results: report reviewed and image reviewed CT scan - pelvis: report reviewed and image reviewed Assessment and Plan (1) Acute appendicitis: Status: Acute He is in the ER for right lower quadrant pain and tenderness. His CAT scan shows inflammatory changes surrounding the appendix along with a distended appendix consistent with acute appendicitis. There seemed to be some appendicoliths. I had a long discussion with him about the benefits of proceeding with appendectomy. I discussed the technique of laparoscopic appendectomy possible open appendectomy. Reviewed the risks including but not limited to bleeding, infections, injury to other organs including bowel and urinary tract, staple line leak, abscesses, inherent risks of anesthesia, as well as the benefits and alternatives He says he understands and wants to proceed . His mother was with him during the discussion. We will proceed with appendectomy tonight. Quality Stroke Does the patient have a stroke diagnosis?: No VTE Prior VTE?: No VTE Risk Level:: Medical - low VTE Device Contraindication: Treatment Not Indicated VTE Drug Contraindication: Treatment Not Indicated Procedures Date of Service Date of Service: 03/31/24
[2024-03-30] MEDS: Piperacillin Sodium/Tazobactam 3.375 GM in 0.9 % Sodium Chloride 50 ML IV (18:13)
[2024-03-30] MEDS: 0.9 % Sodium Chloride 1,000 ML 100 ML IVCONT ×2 (18:13→22:27)
[2024-03-30 18:19] LABS: Prothrombin Time 12.2 SEC (11.1-13.3)
[2024-03-30 18:22] LABS: Appearance Urine Clear; Color Urine Yellow; Glucose Urine UA Negative (Negative); Leukocyte Esterase Urine Negative (Negative); Nitrite Urine Negative (Negative); PH 7.5 (5.0-9.0); Specific Gravity - Urine >= 1.030 (1.005-1.025); Urine Blood Negative (Negative); Urine Ketones Trace mg/dL (Negative); Urine Protein Negative (Neg-Trace)
[2024-03-30 18:22] LABS: Partial Thromboplastin Time 40.4 SEC (26.0-36.8)
[2024-03-30 18:24] LABS: Lactic Acid 1.1 mmol/L (0.5-2.0)
[2024-03-30 18:27] LABS: Bacteria Urine None Seen (None Seen); Hyaline Casts Urine 0-2 /LPF (0-2); RBC Urine 0-2 /HPF (0-2); Squamous Epithelial Cell Urine 0-2 /HPF (0-2); WBC Urine 0-5 /HPF (0-5)
--- NOTE | 2024-03-30 18:44 | PC.NURSE ---
Pt brought to surgery at this time
--- NOTE | 2024-03-30 20:19 | HO.ANESPROP2 ---
[facility] Active Problems Active Problems: All Active Problems Acute appendicitis (Acute) Past Medical History Medical History No known health problems Family History Family history of problems with anesthesia: No Surgical History History of Problems with Anesthesia: No Social History Social History Alcohol intake: current Alcohol intake frequency: a few times a month Patient Tobacco Use Status: Former Tobacco user Substance Use Type: Marijuana Advance Directives: No Advance Directives Information Provided: Yes Do you have a plan to hurt others: No Plan Meds Allergies Allergy/AdvReac Type Severity Reaction Status Date / Time No Known Allergies Allergy Verified 03/30/24 09:43 Active Medications: Current Medications Sodium Chloride (Ns) 1,000 mls @ 100 mls/hr IVCONT .Q10H [facility] Last Admin: 03/30/24 18:13 Dose: 100 mls/hr Piperacillin Sod/Tazobactam (Sod 3.375 gm/ Sodium Chloride) 50 mls @ 100 mls/hr IV Q6H [facility] Last Admin: 03/30/24 18:06 Dose: Not Given Sodium Chloride (0.9 % Sodium Chloride Flush 3 Ml Syringe) 3 ml IVFLUSH QSHIFT [facility] Exam Height,Weight and Vital Signs: Height 5 ft 10 in Weight 73.9 kg Last Vital Signs Temp 99.2 F 03/30/24 19:00 Pulse 80 03/30/24 19:00 Resp 18 03/30/24 19:00 BP 129/76 03/30/24 19:00 Pulse Ox 97 03/30/24 19:00 O2 Del Method Room Air 03/30/24 19:00 Pertinent Lab Results Pertinent Lab Results: Laboratory Tests 03/30/24 03/30/24 03/30/24 09:51 17:58 17:59 WBC 17.3 H RBC 5.39 Hgb 16.5 Hct 46.8 MCV 86.8 MCH 30.6 MCHC 35.3 RDW 12.4 Plt Count 284 MPV 9.6 Immature Gran % (Auto) 0.3 Neut % (Auto) 80.2 H Lymph % (Auto) 11.7 L [place] % (Auto) 6.7 Eos % (Auto) 0.9 Baso % (Auto) 0.2 Lymph # (Auto) 2.0 [place] # (Auto) 1.2 Eos # (Auto) 0.2 Baso # (Auto) 0.0 Abs Immat Gran (auto) 0.05 H Absolute Neuts (auto) 13.8 H Absolute Nucleated RBC 0.000 Nucleated RBC % (auto) 0.0 PT 12.2 INR 1.0 APTT 40.4 H Sodium 138 Potassium 3.8 Chloride 104 Carbon Dioxide 26 Anion Gap 12 BUN 14 Creatinine 0.80 Estim Creat Clear Calc 141.9 Estimated GFR > 60 Random Glucose 115 Lactic Acid 1.1 Calcium 10.1 Total Bilirubin 1.0 AST 16 ALT 15 Alkaline Phosphatase 79 Total Protein 7.8 Albumin 4.9 Lipase 14 Urine Color Urine Appearance Urine pH Ur Specific [place] Urine Protein Urine Glucose (UA) Urine Ketones Urine Blood Urine Nitrite Ur Leukocyte Esterase Urine RBC Urine WBC Ur Squamous Epith Cells Urine Bacteria Hyaline Casts Influenza Type A (PCR) NEGATIVE Influenza Type B (PCR) NEGATIVE RSV RNA Qual (PCR) NEGATIVE SARS-CoV-2 RNA (RT-PCR) NEGATIVE Blood Type A Positive Antibody Screen NEGATIVE 03/30/24 18:08 WBC RBC Hgb Hct MCV MCH MCHC RDW Plt Count MPV Immature Gran % (Auto) Neut % (Auto) Lymph % (Auto) [place] % (Auto) Eos % (Auto) Baso % (Auto) Lymph # (Auto) [place] # (Auto) Eos # (Auto) Baso # (Auto) Abs Immat Gran (auto) Absolute Neuts (auto) Absolute Nucleated RBC Nucleated RBC % (auto) PT INR APTT Sodium Potassium Chloride Carbon Dioxide Anion Gap BUN Creatinine Estim Creat Clear Calc Estimated GFR Random Glucose Lactic Acid Calcium Total Bilirubin AST ALT Alkaline Phosphatase Total Protein Albumin Lipase Urine Color Yellow Urine Appearance Clear Urine pH 7.5 Ur Specific [place] >= 1.030 H Urine Protein Negative Urine Glucose (UA) Negative Urine Ketones Trace Urine Blood Negative Urine Nitrite Negative Ur Leukocyte Esterase Negative Urine RBC 0-2 Urine WBC 0-5 Ur Squamous Epith Cells 0-2 Urine Bacteria None Seen Hyaline Casts 0-2 Influenza Type A (PCR) Influenza Type B (PCR) RSV RNA Qual (PCR) SARS-CoV-2 RNA (RT-PCR) Blood Type Antibody Screen Airway Mallampati Class: II TM Dist: >3cm Neck ROM: Full Assessment and Plan Assessment Anesthesia Assessment: Anesthesia Plan Discussed and Chart Reviewed Final Anesthetic Review Family History of Problems with Anesthesia: No History of Problems with Anesthesia: No NPO: Yes ASA Class: II and Emergency Final Preanesthetic Review: No Changes in Pt Med Stat, Meds/Allgs Chart Reviewed, Consent Obtained/Reviewed and Anes Risks/Benef Reviewed Patient Risk: Low Procedure Risk: Intermediate Anesthetic Plan Anesthetic Plan: GA Disposition: Standard PACU
--- NOTE | 2024-03-30 20:57 | P.OP_ITS ---
Operative Note Operative Note Date of Service: 03/30/24 Narrative: Preop diagnosis: Acute appendicitis Postop diagnosis: Acute appendicitis with markedly indurated and suppurative distal 2/3 of the appendix; the appendix was curled up on itself with a very thickened inflamed mesoappendix The patient is a 28-year-old male seen in the ED because of right lower quadrant pain who was admitted tonight because of right lower quadrant pain and tenderness with a CT scan consistent with acute appendicitis. He understood the technique of laparoscopic appendectomy. He was aware of the risks, benefits, and alternatives. He was brought to the operating room. He was placed supine under general anesthesia via endotracheal tube the tube. A Solomon catheter was inserted. The abdomen was prepped and draped in the usual sterile fashion. A surgical time- out was done. The patient was receiving scheduled IV antibiotics. I made a short infraumbilical incision was made using blade 15. This was carried down through the full-thickness of the skin and subcutaneous fat to the fascia. The fascia was incised. The peritoneum was entered. Through this incision Lucero port was introduced. Pneumoperitoneum was introduced to a pressure of 15 mm Hg. From here on the rest of the procedure was done under vision with the 10 mm 30 degree laparoscope. With laparoscopic visualization I inserted a 10 mm port in the left lower quadrant via a small stab incision. A 5 mm port was introduced via a small incision in the suprapubic margin. The patient was placed in a steep head down and left side down position. Graspers were placed through the working ports. By following the cecum on the right lower quadrant, I was able to visualize a very indurated and supinated appendix. This was curled up on itself. There was a lot of thickened mesentery in the area as well. I was able to see the tip of the appendix. This was retracted with the grasper. By doing so was able to follow the entire length appendix all the way to the base. We had to release a lot of thickened and indurated adhesions that was causing the appendix to curled up on itself in almost a spiral fashion. I used the [place] dissector to divide this thick adhesions by doing so was eventually able to straighten the appendix. The base of the appendix was seen. I was able to create a mesenteric window at the base. I used the Endo-PEDRO 30 mm stapler to divide the appendix. I then used the LigaSure to serially resect the attached and very indurated and thickened mesoappendix. The appendix was then completely . This was retrieved through an endobag through the left lower quadrant incision. I rein serted all ports and re-insufflated. I examined the area of dissection. The staple line was intact. There was no evidence of any bowel injury. I examined all 4 quadrants. There was no other pathology seen. I then observed for hemostasis on the area of dissection. Once hemostasis was confirmed, I proceeded then to desufflated through the port sites. I removed all ports under vision with the laparoscope. The umbilical port was therefore removed last. The fascia of the umbilical incision was closed with a [id number] Polysorb 0 stitch. Skin closure was achieved on all incisions using Polysorb 4-0 subcuticular running sutures. All incisions were infiltrated with Marcaine 0.5% for postop analgesia. Dressings were applied. The procedure was then completed. The patient tolerated the procedure well. There were no immediate complications. Initial and final counts of sponges and instruments were correct. Estimated blood loss was about 20 cc. The patient was extubated w [facility] and transferred to the recovery room with stable vital signs.
--- NOTE | 2024-03-30 21:15 | PM.EVENT ---
Event Note Date of Service: 03/31/24 Event Note: Seen postop PACU Awake and appears comfortable Stable vital signs Abdomen soft Dressings dry Pain management Okay to have regular diet Hopefully we can discharge tomorrow Mother updated Time Spent With Patient Time: Total time managing care of this patient today ____ minutes.
[2024-03-30] MEDS: 0.9 % Sodium Chloride Flush 3 ML SYRINGE IVFLUSH (22:26)
[2024-03-31] MEDS: Piperacillin Sodium/Tazobactam 3.375 GM in 0.9 % Sodium Chloride 50 ML IV ×2 (00:05→06:03)
[2024-03-31 03:26] VITALS: BP 122/67; PULSE 75; RESP 14; TEMP 36.7; O2SAT 98
[2024-03-31 07:53] VITALS: BP 118/67; PULSE 71; RESP 16; TEMP 36.5; O2SAT 97
--- NOTE | 2024-03-31 08:01 | PHA.MEDREC ---
Pharmacy Consult ? Medication Reconciliation Pharmacy has completed the medication reconciliation.
--- NOTE | 2024-03-31 08:10 | PM.PNGS ---
Subjective Subjective Date of Service: 03/31/24 Interval history: Feels well this morning Some incisional pain No nausea or vomiting Able to ambulate Voiding well Physical Exam Vital Signs: Vital Signs: Last Vital Signs Temp 97.7 F 03/31/24 07:53 Pulse 71 03/31/24 07:53 Resp 16 03/31/24 07:53 BP 118/67 03/31/24 07:53 Pulse Ox 97 03/31/24 07:53 O2 Del Method Room Air 03/31/24 07:53 O2 Flow Rate 2 03/30/24 21:00 BMI result Body Mass Index 25.5 Const: Other: Looks well General: comfortable and no acute distress Resp: Effort & Inspection: normal respiratory effort Cardio: Rate: regular rate GI: Other: Dressings dry Palpation (GI): Soft to palpation and not firm Objective Data Active Medications Sodium Chloride (Ns) 1,000 mls @ 100 mls/hr IVCONT .Q10H [facility] Last Infusion: 03/31/24 06:36 Dose: 100 mls/hr Documented By: SIRI Piperacillin Sod/Tazobactam (Sod 3.375 gm/ Sodium Chloride) 50 mls @ 100 mls/hr IV Q6H [facility] [place] Last Infusion: 03/31/24 06:36 Dose: Infused Documented By: SIRI Morphine Sulfate (Morphine Sulfate 4 Mg/Ml Cartridge) 3 mg IVPUSH Q3H PRN; Protocol PRN Reason: Pain, Severe (Pain Scale 7-10) Oxycodone HCl (Oxycodone Hcl Immed Release 5 Mg Tablet) 10 mg PO Q4H PRN PRN Reason: Pain, Moderate(Pain Scale 4-6) Sodium Chloride (0.9 % Sodium Chloride Flush 3 Ml Syringe) 3 ml IVFLUSH QSHIFT [facility] [place] Last Admin: 03/30/24 22:26 Dose: 3 ml Documented By: SIRI Labs 03/30/24 09:51 03/30/24 09:51 Labs: Laboratory Results - last 24 hr 03/30/24 03/30/24 03/30/24 09:51 17:58 17:59 MCV 86.8 MCH 30.6 MCHC 35.3 RDW 12.4 Plt Count 284 MPV 9.6 Immature Gran % (Auto) 0.3 Neut % (Auto) 80.2 H Lymph % (Auto) 11.7 L [place] % (Auto) 6.7 Eos % (Auto) 0.9 Baso % (Auto) 0.2 Lymph # (Auto) 2.0 [place] # (Auto) 1.2 Eos # (Auto) 0.2 Baso # (Auto) 0.0 Abs Immat Gran (auto) 0.05 H Absolute Neuts (auto) 13.8 H Absolute Nucleated RBC 0.000 Nucleated RBC % (auto) 0.0 PT 12.2 INR 1.0 APTT 40.4 H Anion Gap 12 Estim Creat Clear Calc 141.9 Estimated GFR > 60 Random Glucose 115 Lactic Acid 1.1 Calcium 10.1 Total Bilirubin 1.0 AST 16 ALT 15 Alkaline Phosphatase 79 Total Protein 7.8 Albumin 4.9 Lipase 14 Urine Color Urine Appearance Urine pH Ur Specific [place] Urine Protein Urine Glucose (UA) Urine Ketones Urine Blood Urine Nitrite Ur Leukocyte Esterase Urine RBC Urine WBC Ur Squamous Epith Cells Urine Bacteria Hyaline Casts Influenza Type A (PCR) NEGATIVE Influenza Type B (PCR) NEGATIVE RSV RNA Qual (PCR) NEGATIVE SARS-CoV-2 RNA (RT-PCR) NEGATIVE Blood Type A Positive Antibody Screen NEGATIVE 03/30/24 18:08 MCV MCH MCHC RDW Plt Count MPV Immature Gran % (Auto) Neut % (Auto) Lymph % (Auto) [place] % (Auto) Eos % (Auto) Baso % (Auto) Lymph # (Auto) [place] # (Auto) Eos # (Auto) Baso # (Auto) Abs Immat Gran (auto) Absolute Neuts (auto) Absolute Nucleated RBC Nucleated RBC % (auto) PT INR APTT Anion Gap Estim Creat Clear Calc Estimated GFR Random Glucose Lactic Acid Calcium Total Bilirubin AST ALT Alkaline Phosphatase Total Protein Albumin Lipase Urine Color Yellow Urine Appearance Clear Urine pH 7.5 Ur Specific [place] >= 1.030 H Urine Protein Negative Urine Glucose (UA) Negative Urine Ketones Trace Urine Blood Negative Urine Nitrite Negative Ur Leukocyte Esterase Negative Urine RBC 0-2 Urine WBC 0-5 Ur Squamous Epith Cells 0-2 Urine Bacteria None Seen Hyaline Casts 0-2 Influenza Type A (PCR) Influenza Type B (PCR) RSV RNA Qual (PCR) SARS-CoV-2 RNA (RT-PCR) Blood Type Antibody Screen Procedures Date of Service Date of Service: 03/31/24 Progress Note: A&P Assessment and plan (1) Acute appendicitis: Status: Acute Assessment and Plan: Status post laparoscopic appendectomy Doing well postop Good pain control Clinically looks well, stable vital sign He feels ready to be discharged Discharge instructions given the patient Mother was at bedside Time Spent With Patient Time: Total time managing care of this patient today ____ minutes. Quality Stroke Does the patient have a stroke diagnosis?: No VTE Prior VTE?: No VTE Risk Level:: Medical - low VTE Device Contraindication: Treatment Not Indicated VTE Drug Contraindication: Treatment Not Indicated
--- NOTE | 2024-03-31 08:28 | HO.POSTANES ---
Post Anesthesia Evaluation Post Anesthesia Evaluation Date of Service: 03/31/24 Vital Signs: Vital Signs Temp Pulse Resp BP Pulse Ox O2 Del Method O2 Flow Rate 03/31/24 07:53 97.7 F 71 16 118/67 97 Room Air 03/31/24 03:26 98.1 F 75 14 122/67 98 Room Air 03/30/24 21:30 97.5 F 70 18 127/73 99 Room Air 03/30/24 21:20 97.6 F 66 18 128/73 97 Room Air 03/30/24 21:15 68 13 128/74 100 Room Air 03/30/24 21:10 72 17 124/72 99 Room Air 03/30/24 21:05 67 14 120/76 96 Room Air 03/30/24 21:00 97.5 F 65 15 124/81 100 Nasal Cannula 2 Anesthesia: General Endotracheal-GETA Mental Status: Awake Pain Control: Satisfactory Nausea/Vomiting: None Hydration: Adequate Anesthesia-Related Issues: No Anes. Related Issues
--- NOTE | 2024-03-31 09:17 | MHC.CM.PN ---
pt dcd home self care
[2024-03-31] MEDS: oxyCODONE HCl Immed Release 5 MG TABLET 10 MG PO (10:37)
--- NOTE | 2024-04-03 09:37 | PM.DS ---
DS: Providers Provider Date of Service: 03/31/24 <ANIBAL Adorno Last Filed: 04/08/24 08:32> Date of admission: 03/30/24 18:34 <ANIBAL Adorno Last Filed: 04/08/24 08:32> Date of discharge: 03/31/24 <ANIBAL Adorno Last Filed: 04/08/24 08:32> Primary care physician: Conner Tran MD <ANIBAL Adorno Last Filed: 04/08/24 08:32> Attending physician on admission: Westley Cao <ANIBAL Adorno Last Filed: 04/08/24 08:32> Attending physician on discharge: Westley Cao <ANIBAL Adorno Last Filed: 04/08/24 08:32> DS: Diagnosis Discharge Diagnosis (1) Acute appendicitis: Status: Resolved <ANIBAL Adorno Last Filed: 04/08/24 08:32> DS: Summary Hospital Course Hospital Course: HPI AT ADMISSION: Zoran Cueva is a 28 year old male here in the ER because of right lower quadrant pain. He says that this started about 2 days ago. This was a very low intensity. However, he says today that this seems to be a little worse than yesterday. He denies any nausea or vomiting. He does admit to some loose stools. He denies any fever at home although he states that he may have felt chilly. He denies any similar episodes in the past. He denies any significant medical problems. His CAT scan shows inflammatory changes surrounding the appendix along with a distended appendix consistent with acute appendicitis. There seemed to be some appendicoliths. HOSPITAL COURSE: He was admitted to the surgical service for further treatment of the acute appendicitis. It was recommended to proceed with laparoscopic appendectomy he agreed and was added onto the OR schedule for that night. On 03/30/24, a laparoscopic appendectomy was performed by Dr. Cao without complication. The patient tolerated the procedure well. He had an uncomplicated recovery course. On POD #1, he felt well with good pain control and was tolerating a solid diet. he was OOB and ambulating without difficulty. His abdomen was benign with clean/intact dressings. He felt ready for discharge. He was discharged to home on 03/31/24 in stable condition. He is to follow up in the office in 2 weeks. <Shantel Kearns PA-C - Last Filed: 04/08/24 08:32> Status at Discharge Functional status at discharge: independent ambulation <Shantel Kearns PA-C - Last Filed: 04/08/24 08:32> Overall status at discharge: patient is progressing back to baseline <Shantel Kearns PA-C - Last Filed: 04/08/24 08:32> Time Attestation Discharge Coordination Time (in mins): 30 min <Westley Cao MD - Last Filed: 04/03/24 10:26> Quality: Safe Use of Opioids Does Pt have an Active Cancer Diagnosis on the Problem List?: No <Westley Cao MD - Last Filed: 04/03/24 10:26> Quality: Stroke Does the patient have a stroke diagnosis?: No <Westley Cao MD - Last Filed: 04/03/24 10:26> Physical Exam Vital Signs: Vital Signs: Last Vital Signs Temp 97.7 F 03/31/24 07:53 Pulse 71 03/31/24 07:53 Resp 16 03/31/24 07:53 BP 118/67 03/31/24 07:53 Pulse Ox 97 03/31/24 07:53 O2 Del Method Room Air 03/31/24 07:53 O2 Flow Rate 2 03/30/24 21:00 BMI result Body Mass Index 25.5 <Shantel Kearns PA-C - Last Filed: 04/08/24 08:32> GI: Inspection: No distended and Yes incision (dressings c/d/i) <ANIBAL Adorno Last Filed: 04/08/24 08:32> Palpation (GI): Soft to palpation, Tenderness to palpation present (GI) (mild incisional) and no guarding <ANIBAL Adorno Last Filed: 04/08/24 08:32> Skin: General skin exam: no rashes or lesions noted <ANIBAL Adorno Last Filed: 04/08/24 08:32> DS: Data Data Completed and Pending Completed studies during hospitalization [Text1]: 03/30/24 20:40 Surgical [PTH] Routine Vermiform appendix, appendectomy: Acute appendicitis and periappendicitis <Shantel Kearns PA-C - Last Filed: 04/08/24 08:32> Labs on day of discharge: Preliminary micro results at discharge 03/30/24 17:59 Blood Culture - Preliminary Blood - Venous No growth after 48 hours. 03/30/24 18:08 Blood Culture - Preliminary Blood - Venous No growth after 48 hours. <Shantel Kearns PA-C - Last Filed: 04/08/24 08:32> Discharge Plan Discharge Anticipated Discharge Date/Time: 03/31/24 10:00 <Shantel Kearns PA-C - Last Filed: 04/08/24 08:32> Patient Disposition: Home, Self-Care <Shantel Kearns PA-C - Last Filed: 04/08/24 08:32> Discharge Diagnosis: acute appendicitis <Shantel Kearns PA-C - Last Filed: 04/08/24 08:32> acute appendicitis <Westley Cao MD - Last Filed: 04/03/24 10:26> Referrals: Conner Tran MD [Primary Care Provider] - 1 Week Westley Cao MD [Physician] - 2 Weeks <Shantel Kearns PA-C - Last Filed: 04/08/24 08:32> Discharge Medications: New oxycodone-acetaminophen [Percocet] 5-325 mg tablet 1 tab PO Q4-6H PRN (Reason: pain) Qty: 20 0RF Rx Instructions: Partial Fill upon patient request. ibuprofen 600 mg tablet 600 mg PO Q6H PRN (Reason: pain) Qty: 30 0RF Discontinued amoxicillin-pot clavulanate 875-125 mg tablet 1 tab PO BID Qty: 20 0RF prednisone 20 mg tablet 40 mg PO DAILY 5 Days Qty: 10 0RF naproxen 500 mg tablet 500 mg PO Q8-12H PRN (Reason: pain (scale score 4-6)) Qty: 20 0RF No Action acetaminophen 500 mg tablet 1,000 mg PO Q6H PRN (Reason: Fever Or Pain) bismuth subsalicylate [Pepto-Bismol] 262 mg/15 mL Suspension 524 mg PO Q30M PRN (Reason: GI Upset) Rx Instructions: do not exceed 8 doses in a 24 hour period <Shantel Kearns PA-C - Last Filed: 04/08/24 08:32> Discharge Orders: Discharge Order (Routine); Ordered 03/31/24 Ordered By: Westley Cao <Shantel Kearns PA-C - Last Filed: 04/08/24 08:32> Diet: Advance to usual diet <Shantel Kearns PA-C - Last Filed: 04/08/24 08:32> Advance to usual diet <Westley Cao MD - Last Filed: 04/03/24 10:26> Activity on Discharge: No heavy lifting <Shantel Kearns PA-C - Last Filed: 04/08/24 08:32> No heavy lifting <Westley Cao MD - Last Filed: 04/03/24 10:26> Stand Alone Forms: Patient Portal Discharge page <Shantel Kearns PA-C - Last Filed: 04/08/24 08:32> Print Language: Sinhala <Shantel Kearns PA-C - Last Filed: 04/08/24 08:32> Care Plan Goals: If the incision area is tender, you may apply an ice pack for short intervals (No more than 20 minutes on, followed by at least 20 minutes off). Do not apply heat. Do not use creams, lotions, or topical antibiotics unless instructed to do so by your surgeon. These can cause infection or allergic reaction. No lifting more than 20 lbs Okay to shower after 24 hours Okay to change dressings with gauze or Band-Aid after 24 hours No strenuous activities Call the office for follow-up in 2 weeks - with Dr. Cao Call Your Doctor If: -Your temperature exceeds 101.5? F -You experience excessive pain or swelling -You have an unexpected reaction to medication -You have excessive bleeding -You experience continued vomiting/nausea -Your incision begins to separate -Your incision shows signs of infection such as increased redness, swelling, excessive pain, drainage (light blood or clear fluid is normal) or heat <Shantel Kearns PA-C - Last Filed: 04/08/24 08:32> Health Concerns: acute appendicitis <Shantel Kearns PA-C - Last Filed: 04/08/24 08:32> Plan of Treatment: s/p laparoscopic appendectomy F/u in office in 2 weeks <Shantel Kearns PA-C - Last Filed: 04/08/24 08:32> Assessment: Doing well post op. <Shantel Kearns PA-C - Last Filed: 04/08/24 08:32> Discharge Date/Time: 03/31/24 10:59 <ANIBAL Adorno Last Filed: 04/08/24 08:32>
== END 2024-03-31 10:59 | disposition home or self-care (01) | DRG 234 ==
LOC: HO.ED 17:22 → HO.SSS 18:20 → HO.EDOVER 18:35 → HO.S3 19:55
PROVIDERS: Physician Assistant; Admitting Provider Surgery; Emergency Provider Emergency Medicine; PCP Internal Medicine; Visit Provider Surgery
PROC: 0DTJ4ZZ Resection of Appendix, Percutaneous Endoscopic Approach (ICD-10-PCS; CPT 44970; principal; 2024-03-30 19:45)
DX: K35.80 Unspecified acute appendicitis (principal); Z20.822 Contact with and (suspected) exposure to COVID-19; Z87.891 Personal history of nicotine dependence
CPT/HCPCS: 44970; 0241U; 36415; 74177; 80053; 81001; 83605; 83690; 85025; 85610; 85730; 86850; 86900; 86901; 87040; 88304; 99221; 99285; J0131; J1100; J1885; J2250; J2270; J2405; J2543; J2704; J2795; J3010; Q9967

== ENCOUNTER → 2024-03-30 18:34 | Outpatient (BNV) | payer MEDICAID, SELFPAY | PROVIDERS: Admitting Provider Surgery; Emergency Provider Emergency Medicine; PCP Internal Medicine; Visit Provider Surgery | DX: K35.80 Unspecified acute appendicitis (principal) | CPT/HCPCS: 44970; 99024; 99222; 99499 ==

== ENCOUNTER 2024-04-09 15:38 | Outpatient (AMB) | payer MEDICAID, SELFPAY ==
--- NOTE | 2024-04-09 15:38 | A.OFFVIS_ITS ---
Vital Signs 04/09/24 15:42 Height 5 ft 10 in Weight 177 lb 7.554 oz BMI 25.5 Intake Visit Reasons: s/p lap appy Intake Note: This patient presents for a post-op assessment status post laparoscopic appendectomy. Pt c/o; reports no complaints pertaining to surgery. [employer] Required: No Accompanied by: Family/Other Allergies No Known Allergies Allergy (Verified 04/09/24 15:43) HPI HPI s/p lap appy: Details: 28-year-old male here for postop visit. He underwent laparoscopic appendectomy for acute appendicitis last March 30, 2024. He tolerated procedure well. He currently feels well and denies significant complaints. He has good oral intake. [facility], [facility] Medical History No known health problems Surgical History History of laparoscopic appendectomy (~03/30/24) Social History Household Members: Family Housing: House Do you presently have visiting nurse or other home services: No Alcohol intake: current Alcohol intake frequency: a few times a month Patient Tobacco Use Status: Former Tobacco user Substance Use Type: Marijuana Review of Systems Const Denies chills and Denies fever(s) Card Denies chest pain, Denies dyspnea and Denies dyspnea on exertion Resp Denies cough, Denies dyspnea and Denies dyspnea on exertion GI Denies hematochezia and Denies change in bowel habits Denies hematuria and Denies difficulty urinating Musc Denies back pain and Denies limited range of motion Neuro Denies focal weakness and Denies convulsions Psych Denies depression and Denies mood swings Physical Exam Vital Signs: BMI result Body Mass Index 25.5 Const General: comfortable and no acute distress Resp Effort & Inspection: normal respiratory effort GI Other: All incisions are well healed, no evidence of infection Palpation (GI): Soft to palpation, not firm and nontender Assessment & Plan Assessment & Plan (1) Acute appendicitis: Code(s): K35.80 - Unspecified acute appendicitis Category: Medical Plan: Status post laparoscopic appendectomy. He is doing very well. All incisions are well healed. His path report confirms acute appendicitis I advised him to avoid lifting anything more than 20 lb for at least 2 more weeks. He can otherwise follow up on a p.r.n. basis. Coding Level of Care Code Global (69754) Diagnoses Acute appendicitis K35.80
[2024-04-09 15:42] VITALS: BMI 25.5
== END 2024-04-09 15:46 | disposition home or self-care (01) ==
PROVIDERS: Visit Provider Surgery
DX: K35.80 Unspecified acute appendicitis (principal)
CPT/HCPCS: 99024

== ENCOUNTER → 2024-04-09 15:38 | Outpatient (BNVA) | payer MEDICAID, SELFPAY | PROVIDERS: Visit Provider Surgery | DX: K35.80 Unspecified acute appendicitis (principal) | CPT/HCPCS: 99212 ==

== ENCOUNTER → 2025-04-09 13:25 | Outpatient (BNVA) | payer OTHER, SELFPAY | PROVIDERS: Visit Provider Physician Assistant Medical | DX: Z13.89 Encounter for screening for other disorder (principal) | CPT/HCPCS: 99203 ==

== ENCOUNTER → 2025-04-12 14:09 | Outpatient (BNVA) | payer OTHER, SELFPAY | PROVIDERS: Visit Provider Physician Assistant Medical | DX: Z13.89 Encounter for screening for other disorder (principal) | CPT/HCPCS: 99213 ==

== ENCOUNTER → 2025-04-15 14:04 | Outpatient (BNVA) | payer OTHER, SELFPAY | PROVIDERS: Visit Provider Physician Assistant Medical | DX: Z13.89 Encounter for screening for other disorder (principal) | CPT/HCPCS: 99213 ==